=== PATIENT | male | born 1955 | race Caucasian/White ===

== ENCOUNTER 2018-07-31 02:36 | Outpatient (CLI) | payer OTHER, SELFPAY ==
[2018-07-31 07:33] LABS: Abs Immature Grans 0.01 k/cumm (0.0-0.09); Absolute Basophil Count 0.04 k/cumm (0.0-0.2); Absolute Eosinophil Count 0.19 k/cumm (0.0-0.7); Absolute Lymphocyte Count 1.65 k/cumm (1.2-3.4); Absolute Monocyte Count 0.61 k/cumm (0.11-0.7); Absolute Neutrophil Count 3.83 k/cumm (1.2-6.7); Basophils % 0.6; HCT 47.3 % (40.0-50.0); HGB 15.6 g/dL (13.5-17.5); Immature Grans % 0.2; Lymphocytes % 26.1; Mean Corpuscular Hemoglobin 29.8 pg (27.0-33.0); Mean Corpuscular Volume 90.3 fL (80-95); Mean Platelet Volume 9.5 fL (8.0-11.0); Monocytes % 9.6; Neutrophils % 60.5; Platelet Count 228 x1000/uL (130-400); RBC 5.24 m/cumm (4.50-6.00); RBC Distribution Width 13.2 % (11.8-14.1); White Blood Cell Count 6.33 k/cumm (4.4-10.8)
[2018-07-31 07:46] LABS: ALT 58 U/L (12-78); AST 23 U/L (15-37); Albumin 3.6 g/dL (3.4-5.0); Alkaline Phosphatase 84 U/L (46-116); Anion Gap 7.7 mmol/L (3-11); BUN 23 mg/dL (7-18); Bilirubin, Total 0.4 mg/dL (0.2-1.0); CO2 26.3 mmol/L (21.0-32.0); CREATININE 1.01 mg/dL (0.70-1.30); Calcium 8.2 mg/dL (8.5-10.1); Chloride 107 mmol/L (98-107); Glucose 103 mg/dL (70-100); Sodium 141 mmol/L (136-145); Total Protein 7.3 g/dL (6.4-8.2)
[2018-07-31 07:54] LABS: Hemoglobin A1C 6.1 % (4.5-6.2)
[2018-07-31 20:40] LABS: Cholesterol 178 mg/dL (50-200); HDL Cholesterol 31 mg/dL (40-60); LDL CHOLESTEROL 136 mg/dL (<100); Triglyceride 115 mg/dL (30-150)
[2018-08-01 09:22] LABS: PSA, Diagnostic <0.1 ng/ml (0-4.5)
[2018-08-02 08:45] LABS: Testosterone, Total 479 ng/dL (240-950)
== END 2018-07-31 02:56 ==
PROVIDERS: PCP Family Medicine; Visit Provider Nurse Practitioner
DX: C61 Malignant neoplasm of prostate (principal); Z13.220 Encounter for screening for lipoid disorders; Z13.1 Encounter for screening for diabetes mellitus
CPT/HCPCS: 36415; 80053; 80061; 83721; 84403; 83036; 84153; 85025

== ENCOUNTER 2018-08-01 01:16 | Outpatient (CLI) | payer OTHER, SELFPAY ==
--- NOTE | 2018-08-01 14:34 | DI.US_ITS ---
SYMPTOM/DIAGNOSIS: RT CAROTID BRUIT, R09.89 CAROTID ULTRASOUND: A moderate quantity of high density plaque is noted in the distal common carotid and carotid bulb and take off of the internal carotid artery bilaterally. There is moderate narrowing of the left internal carotid artery. Bilateral antegrade flow is noted in the vertebrals. SUMMARY: Bilateral plaque formation is noted in the distal common carotid arteries and bulb and takeoff of the internal carotid artery. There is mild to moderate left internal carotid artery stenosis.
== END 2018-08-01 01:36 ==
PROVIDERS: PCP Family Medicine; Visit Provider Family Medicine
DX: R09.89 Other specified symptoms and signs involving the circulatory and respiratory systems (principal); I65.22 Occlusion and stenosis of left carotid artery
CPT/HCPCS: 93880

== ENCOUNTER 2018-09-12 10:13 | Emergency (ER) | payer OTHER, SELFPAY ==
[2018-09-12 10:18] VITALS: BP 178/88; PULSE 78; RESP 18; TEMP 36.7; O2SAT 99
--- NOTE | 2018-09-12 10:33 | ED.GENADUL_ITS ---
Discharge Plan Disposition Patient Disposition: HOME Condition: Stable Discharge Details Chief Complaint: Abd Prob Clinical Impression: Acute pyelonephritis, Acute flank pain, Lung nodule Primary Care Provider: Devin Cates ED Provider: Evens Guy Home Meds and New Rx's Prescriptions: New levofloxacin 750 mg tablet 750 mg PO DAILY Qty: 6 RF: 0 Continue carboxymethylcellulose sodium [Refresh Contacts] drops 2 drp OP BID RF: 0 atorvastatin 20 mg tablet 20 mg PO DAILY Qty: 90 RF: 3 methylcellulose (laxative) [Fiber Laxative (methylcellulo)] 500 MG tablet 500 mg PO DAILY RF: 0 Oxygen EACH RF: 0 atorvastatin [Lipitor] 40 MG tablet 40 mg PO DAILY Qty: 90 RF: 3 lisinopril 5 MG tablet 5 mg PO DAILY 30 Days Qty: 90 RF: 3 calcium carb and citrate-vitD3 1 EACH tablet extended release 1 tab PO DAILY RF: 0 diclofenac sodium 50 MG tablet,delayed release (DR/EC) 50 mg PO DAILY AM RF: 0 omega 7-aqz-fzj-fish oil [Fish Oil] 1 EACH capsule,delayed release(DR/EC) 1 cap PO DAILY AM RF: 0 aspirin 81 mg Tablet,Chewable 81 mg PO DAILY RF: 0 Discharge Instructions Instructions: Urinary Tract Infection in Men (ED) Additional Instructions: Follow up with your primary care provider within a week. You should also discuss with them the lung nodule seen on the cat scan and have repeat imaging in the future to make sure this isn't getting bigger if you have worsening pain, persistent vomit, or difficulty breathing return to the emergency department Medical Decision Making Patient comes in with complaints of left sided abdomen/oblique pain since this mroning and has some pain with deep breathing. Has no guarding or rebound but is tender in llq and oblique and left lower rib in mid axillary line. will obtain imaging to eval for diverticulitis vs pe though could be oblique strain. HAs no chest pressure or pain with walking and only with deep breathing so doubt acs and no tearing back pain and normal vascular exam so doubt dissection pt remains stable, still has some mild discomfort but declining pain meds at this time, lab work unremarkable except ua showing blood and positive nitrites and he does now note some burning with urination. awaiting imaging CTA of the chest shows no PE, does have small lower lobe infiltrates per Dr. Sean and 5mm nodule which pt was advised of and will need f/u with pcp for this. ct abd shows no acute pathology other than bladder wall inflammation. Will tx for possible early pna (though he states he has no increased cough from baseline or sob) and pyelo and advised f/u with pcp and return precautions Differential Diagnosis oblique strain, PE, diverticulitis Imaging Data Radiologic Study: Attestation: I personally reviewed and interpreted this imaging study as follows: Imaging: CT Scan Radiologist's impression: per dr. mcguire bilateral small lower lobe infiltrates, 5mm lung nodule, bladder inflammation Lab Data Lab results reviewed: Yes I reviewed the patient's lab results. HPI General Mode of arrival: ambulatory . Date/Time Provider Initiated Documentation: 09/12/18 10:24 . Limitations to Documentation: no limitations . Information obtained by: patient . History of Present Illness 63 year old M presents to the emergency department with the chief complaint of left sided abdominal pain, described as moderate, with intensity rated at 5. Quality is described as stabbing, and is localized to the chest and abdomen. Patient reports no radiation. Patient started experiencing this hour(s) (3) Patient notes no other symptoms.. Patient did receive the following treatments prior to arrival, none Related Data Home Medications Medication Instructions Recorded Confirmed calcium carb and citrate-vitD3 1 tab PO DAILY 03/20/14 09/12/18 methylcellulose (laxative) [Fiber 500 mg PO DAILY 06/30/16 09/12/18 Laxative (methylcellulo)] Oxygen 06/19/17 08/08/18 diclofenac sodium 50 mg PO DAILY AM 01/10/18 09/12/18 omega 5-qon-pvy-fish oil [Fish Oil] 1 cap PO DAILY AM 01/10/18 09/12/18 atorvastatin [Lipitor] 40 mg PO DAILY #90 tab-cap 01/30/18 09/12/18 lisinopril 5 mg PO DAILY 30 Days #90 tab 06/05/18 09/12/18 atorvastatin 20 mg tablet 20 mg PO DAILY #90 tab 08/08/18 09/12/18 carboxymethylcellulose sodium eye 2 drp OP BID ml 08/08/18 09/12/18 drops aspirin 81 mg PO DAILY 09/12/18 09/12/18 levofloxacin 750 mg PO DAILY #6 tab 09/12/18 Previous Rx's Medication Instructions Recorded atorvastatin [Lipitor] 40 mg PO DAILY #90 tab-cap 01/30/18 lisinopril 5 mg PO DAILY 30 Days #90 tab 06/05/18 atorvastatin 20 mg tablet 20 mg PO DAILY #90 tab 08/08/18 levofloxacin 750 mg PO DAILY #6 tab 09/12/18 Allergies Allergy/AdvReac Type Severity Reaction Status Date / Time gluten Allergy Unknown Unverified 09/12/18 10:21 ciprofloxacin HCl AdvReac Intermediate Nausea Unverified 09/12/18 10:21 [From Cipro] esomeprazole magnesium AdvReac Intermediate Diarrhea Unverified 09/12/18 10:21 [From Nexium] General Stated Complaint: Abd Prob GEORGETTE: 3 Review of Systems Review of Systems All systems reviewed & are unremarkable except as noted in HPI and below Constitutional Denies chills, Denies fever(s) and Denies weakness Eyes Denies loss of vision ENT Denies change in voice Cardiovascular Denies dyspnea Respiratory Denies dyspnea Gastrointestinal Denies nausea and Denies vomiting Genitourinary Denies dysuria Musculoskeletal Denies joint swelling Integumentary/Breasts Denies rash Neurologic Denies loss of vision and Denies weakness Psychiatric Denies depression Endocrine Denies cold intolerance and Denies heat intolerance Allergic/Immunologic Denies urticaria PFSH Family History Mother No problems noted. Father Diabetes Heart disease Sister Diabetes Heart disease Brother Cerebrovascular accident Brother Neoplasm Social History household members: other details: 2 Smoking/Tobacco Use Status: Current every day alcohol intake: current alcohol intake frequency: holidays/special occasions only substance use type: does not use special alfred needs: No Surgical History Excision, Tumor PROSTATE (11/04/13) Exam Const General: no acute distress Orientation: alert HENMT Head: normal to inspection Ears: external ears normal General nose exam: external nose normal Mouth: moist mucous membranes Eyes General: appearance normal, both eyes and all related structures Neck Neck: normal visual inspection Resp Effort & Inspection: normal respiratory effort and able to speak in complete sentences Cardio Rate: regular rate Skin General skin exam: no rashes or lesions noted Neuro General: alert and oriented x3 Extrem General: normal to inspection Psych Mental Status: mental status grossly normal Course Vital Signs Temperature 36.7 C 09/12/18 10:18 Pulse 78 09/12/18 10:18 Respiratory Rate 18 09/12/18 10:18 Blood Pressure 178/88 H 09/12/18 10:18 Pulse Oximetry 99 09/12/18 10:18 Temperature 36.7 C 09/12/18 10:18 Temperature Source Skin 09/12/18 10:18 Pulse 78 09/12/18 10:18 Respiratory Rate 18 09/12/18 10:18 Blood Pressure 178/88 H 09/12/18 10:18 Blood Pressure Position Sitting 09/12/18 10:18 Pulse Oximetry 99 09/12/18 10:18 Oxygen Delivery Method Room Air 09/12/18 10:18 Oxygen Flow Rate 0 09/12/18 10:18 Pain Level 9 09/12/18 10:18
[2018-09-12 10:58] LABS: Abs Immature Grans 0.03 k/cumm (0.0-0.09); Absolute Basophil Count 0.02 k/cumm (0.0-0.2); Absolute Eosinophil Count 0.12 k/cumm (0.0-0.7); Absolute Lymphocyte Count 1.24 k/cumm (1.2-3.4); Absolute Monocyte Count 0.81 k/cumm (0.11-0.7); Absolute Neutrophil Count 9.93 k/cumm (1.2-6.7); Basophils % 0.2; HCT 47.3 % (40.0-50.0); Immature Grans % 0.2; Lymphocytes % 10.2; Mean Corp. HGB Concentration 33.8 g/dL (32.0-36.0); Mean Corpuscular Hemoglobin 30.6 pg (27.0-33.0); Mean Corpuscular Volume 90.4 fL (80-95); Mean Platelet Volume 9.6 fL (8.0-11.0); Monocytes % 6.7; Neutrophils % 81.7; Platelet Count 219 x1000/uL (130-400); RBC 5.23 m/cumm (4.50-6.00); White Blood Cell Count 12.16 k/cumm (4.4-10.8)
[2018-09-12 11:05] LABS: Bilirubin Negative (Negative); Blood Large (Negative); Clarity Cloudy; Glucose Negative (Negative); Ketones Negative (Negative); Leukocyte Esterase Small (Negative); Nitrite Positive (Negative); Urobilinogen 0.2 EU/dL (Up TO 0.2); pH 7.5 (5-8)
[2018-09-12 11:11] LABS: PTT Activated 24.3 sec (21.0-31.4); Prothrombin Time 9.7 sec (9.3-10.8)
[2018-09-12 11:13] LABS: ALT 58 U/L (12-78); AST 23 U/L (15-37); Albumin 3.6 g/dL (3.4-5.0); Alkaline Phosphatase 89 U/L (46-116); Anion Gap 7.5 mmol/L (3-11); BUN 20 mg/dL (7-18); Bilirubin, Direct 0.12 mg/dL (0.00-0.20); Bilirubin, Total 0.4 mg/dL (0.2-1.0); CO2 28.5 mmol/L (21.0-32.0); CREATININE 0.96 mg/dL (0.70-1.30); Chloride 103 mmol/L (98-107); Glucose 115 mg/dL (70-100); Sodium 139 mmol/L (136-145); Total Protein 7.4 g/dL (6.4-8.2)
[2018-09-12 11:16] LABS: Lipase 167 U/L (73-393)
[2018-09-12 11:16] LABS: C & S Indicated? Yes; RBC >50 (0-2)
[2018-09-12 11:18] LABS: Troponin I < 0.02 ng/mL (0.00-0.06)
--- NOTE | 2018-09-12 11:48 | DI.CT_ITS ---
SYMPTOM/DIAGNOSIS: LT SIDED ABD AND LOW CHEST PAIN PE CHEST CT: CT angiography was performed with multi slice acquisition and multi planar and 3D reconstruction. The study was carried out according to the usual protocol with an intravenous administration of 100 cc's of Omnipaque 350. There is no evidence of PE. There are bilateral upper lobe regions of infiltration. Note is also made of a 5 mm. right upper lobe nodule. There is no evidence of hilar or mediastinal adenopathy. The heart is within normal limits in size. There are atherosclerotic changes involving the aorta without evidence of an aneurysm. Note is made of degenerative bony changes. There is a 5 mm. right upper lobe nodule. In a high risk patient, further evaluation with a follow up chest CT in 6 months is recommended. ABDOMEN AND PELVIC CT: The liver is unremarkable. There is no evidence of cholelithiasis or acute cholecystitis or biliary obstruction. The pancreas, spleen, kidneys and adrenals are intact. There is no evidence of bowel obstruction. There is nothing to suggest an acute appendix. There are a number of minimally dilated small bowel loops. There is no evidence of diverticulosis or diverticulitis. There is no evidence of free air or free fluid in the abdomen or pelvis. There is suboptimal distension of the bladder and diffuse bladder wall thickening is identified. Note is made of small bilateral fat containing inguinal hernias. There is no evidence of adenopathy in the abdomen or pelvis. There are atherosclerotic changes involving the aorta without evidence of an aneurysm. Degenerative changes involving the lower dorsal and lumbar spine are identified. No acute bony abnormality is evident. SUMMARY: Diffuse bladder wall thickening is identified and would certainly be consistent with cystitis.
[2018-09-12] MEDS: Omnipaque 350 MG/ML 100 ML BTL IJ (11:51)
[2018-09-12] MEDS: LEVOFLOXACIN 500 MG, LEVOFLOXACIN 250 MG 750 MG PO (12:27)
--- NOTE | 2018-09-12 12:49 | CMPROGNOTE_ITS ---
Care Management Progress Note 09/12-Dr. Guy requested assistance with a PCP (Sabrina) f/u in one week for kidney infection and lung nodule. Referral faxed to [facility].
== END 2018-09-12 12:32 | disposition home or self-care (01) ==
PROVIDERS: Emergency Provider Emergency Medicine; PCP Family Medicine
DX: N10 Acute pyelonephritis (principal); R10.9 Unspecified abdominal pain; R91.1 Solitary pulmonary nodule
CPT/HCPCS: 36415; 71275; 74177; 80053; 80076; 83690; 87077; 99285; 81003; 81015; 84484; 85025; 85610; 85730; 87086; 87186; 99284; J3490

== ENCOUNTER 2018-09-24 01:45 | Outpatient (CLI) | payer OTHER, SELFPAY ==
[2018-09-24 08:50] LABS: Bilirubin Negative (Negative); Blood Trace-intact (Negative); Clarity Clear; Glucose Negative (Negative); Ketones Negative (Negative); Leukocyte Esterase Negative (Negative); Nitrite Negative (Negative); Specific Gravity 1.015 (1.005-1.025); Urobilinogen 0.2 EU/dL (Up TO 0.2); pH 7.5 (5-8)
[2018-09-24 08:59] LABS: Bacteria Rare HPF (Negative); C & S Indicated? No; Casts Negative LPF (Negative); Crystals Negative HPF (Negative); Epithelial Cells Rare HPF (Negative); Mucus Moderate (Negative); WBC 0-2 HPF (0-5)
== END 2018-09-24 02:05 ==
PROVIDERS: PCP Family Medicine; Visit Provider Family Medicine
DX: N12 Tubulo-interstitial nephritis, not specified as acute or chronic (principal)
CPT/HCPCS: 81003; 81015

== ENCOUNTER 2019-02-05 01:52 | Outpatient (CLI) | payer MEDICARE, OTHER, SELFPAY ==
[2019-02-05 07:53] LABS: Abs Immature Grans 0.02 k/cumm (0.0-0.09); Absolute Basophil Count 0.06 k/cumm (0.0-0.2); Absolute Eosinophil Count 0.22 k/cumm (0.0-0.7); Absolute Monocyte Count 0.67 k/cumm (0.11-0.7); Absolute Neutrophil Count 4.66 k/cumm (1.2-6.7); Basophils % 0.8; Eosinophils % 2.9; HCT 48.3 % (40.0-50.0); HGB 16.2 g/dL (13.5-17.5); Immature Grans % 0.3; Lymphocytes % 26.2; Mean Corp. HGB Concentration 33.5 g/dL (32.0-36.0); Mean Corpuscular Hemoglobin 30.2 pg (27.0-33.0); Mean Corpuscular Volume 90.1 fL (80-95); Mean Platelet Volume 9.7 fL (8.0-11.0); Monocytes % 8.8; Platelet Count 234 x1000/uL (130-400); RBC 5.36 m/cumm (4.50-6.00); RBC Distribution Width 13.3 % (11.8-14.1); White Blood Cell Count 7.63 k/cumm (4.4-10.8)
[2019-02-05 08:46] LABS: ALT 48 U/L (12-78); AST 20 U/L (15-37); Albumin 3.7 g/dL (3.4-5.0); Alkaline Phosphatase 92 U/L (46-116); Anion Gap 7.8 mmol/L (3-11); BUN 23 mg/dL (7-18); Bilirubin, Total 0.4 mg/dL (0.2-1.0); CO2 29.2 mmol/L (21.0-32.0); CREATININE 1.01 mg/dL (0.70-1.30); Calcium 9.2 mg/dL (8.5-10.1); Chloride 104 mmol/L (98-107); Glucose 108 mg/dL (70-100); Potassium 4.8 mmol/L (3.5-5.1); Sodium 141 mmol/L (136-145); Total Protein 7.3 g/dL (6.4-8.2)
[2019-02-05 08:48] LABS: ALT 51 U/L (12-78); Cholesterol 108 mg/dL (50-200); HDL Cholesterol 29 mg/dL (40-60); LDL CHOLESTEROL 64 mg/dL (<100); Triglyceride 90 mg/dL (30-150)
[2019-02-06 10:12] LABS: PSA, Diagnostic <0.1 ng/ml (0-4.5)
[2019-02-09 13:34] LABS: Testosterone, Total 388 ng/dL (240-950)
== END 2019-02-05 02:12 ==
PROVIDERS: PCP Family Medicine; Visit Provider Nurse Practitioner Adult Health
DX: C61 Malignant neoplasm of prostate (principal); E78.5 Hyperlipidemia, unspecified
CPT/HCPCS: 36415; 80053; 80061; 83721; 84403; 84153; 84460; 85025

== ENCOUNTER 2019-02-14 00:42 | Outpatient (CLI) | payer MEDICARE, OTHER, SELFPAY ==
--- NOTE | 2019-02-14 12:35 | DI.CT_ITS ---
SYMPTOMS/DIAGNOSIS: SOLITARY PULMONARY NODULE, R91.[address]: A noncontrast enhanced examination was carried out. When compared with the prior study of 09/12/18, again noted is a 5 mm right upper lobe nodule. No other nodules are identified. There is no infiltrate or pleural effusion. The heart is not enlarged, coronary artery calcification is seen. There is, on this noncontrast enhanced study, no evidence of hilar or mediastinal adenopathy. There are atherosclerotic changes involving the aorta without evidence of an aneurysm. SUMMARY: Stable 5 mm nodule in the right upper lobe. Follow-up evaluation of this patient with a low dose screening chest CT in 12 months is suggested for further evaluation.
== END 2019-02-14 01:02 ==
PROVIDERS: PCP Family Medicine; Visit Provider Family Medicine
DX: R91.1 Solitary pulmonary nodule (principal)
CPT/HCPCS: 71250

== ENCOUNTER 2019-05-19 09:01 | Emergency (ER) | payer MEDICARE, OTHER, SELFPAY ==
[2019-05-19 09:09] VITALS: BP 167/75; PULSE 69; RESP 16; TEMP 37; O2SAT 97
--- NOTE | 2019-05-19 09:10 | W.ED.GENAD ---
Discharge Plan Disposition Patient Disposition: HOME Condition: Good Discharge Details Chief Complaint: RashLesion Clinical Impression: Skin lesion Primary Care Provider: Devin Cates ED Provider: Ashish Rowell Home Meds and New Rx's Prescriptions: New doxycycline hyclate 100 mg tablet 100 mg PO BID 10 Days Qty: 20 RF: 0 No Action Fiber Laxative (methylcellulo) 500 MG tablet 500 mg PO DAILY RF: 0 lisinopril 5 MG tablet 5 mg PO DAILY 30 Days Qty: 90 RF: 3 atorvastatin 20 mg tablet 20 mg PO DAILY Qty: 90 RF: 3 atorvastatin [Lipitor] 40 mg tablet 40 mg PO DAILY Qty: 90 RF: 3 calcium carb and citrate-vitD3 1 EACH tablet extended release 1 tab PO DAILY RF: 0 Fish Oil 1 EACH capsule,delayed release(DR/EC) 1 cap PO DAILY AM RF: 0 diclofenac sodium 50 mg tablet,delayed release (DR/EC) 50 mg PO BID RF: 0 aspirin 81 mg Tablet,Chewable 81 mg PO DAILY RF: 0 Discharge Instructions Instructions: Cellulitis (ED), Tick Bite (ED) Additional Instructions: Well currently there is no clear evidence of Lyme disease, I do feel that there is an infection secondary to the tick bite. Please take the antibiotic as directed. Please do not take it with your calcium, milk, or dairy. Please apply triple antibiotic ointment to the lesion 2-3 times per day. Please watch it closely. If you notice any spreading of the lesion, discharge, drainage, please return immediately for reassessment. If you notice any worsening of your symptoms, or any new symptoms such as vomiting, diarrhea, fever, chills, shortness of breath, chest pain, numbness, weakness, or fainting , please return immediately to the emergency department for reevaluation. Please follow up with your primary care provider as soon as possible for reassessment and reevaluation. As always, it was a pleasure participating in your medical care today. Referrals: Devin Cates [Primary Care Provider] - Medical Decision Making This is a pleasant 64-year-old male who who presents today for evaluation of lesion on his suprapubic skin. He was bitten by a tick there, and states that it had been bitten on for just a few minutes. It was not engorged. He is able to repeat off without any skin in the prone viscus. Since then he has noticed mild erythema around a violaceous center. No drainage or discharge. No clinical evidence of erythema migrans, no current clinical evidence of staph scalded skin syndrome, erythema multiforme, erythema migrans, toxic epidermal necrolysis, Levy-Shaquille syndrome, Kawasaki-like rash, meningococcemia, pemphigus vulgaris, or necrotizing fasciitis. No evidence of black eschar to suggest cutaneous anthrax, no exposure to she per [place] recently. Signs and symptoms consistent are consistent with a very mild cellulitis. However because of the tick component, and the uncertainty of the tick type, I do feel that antibiotics are both indicated and reasonable. He will be given a course of doxycycline, in conjunction with recommendations for trial topical triple antibiotic ointment 2-3 times a day. I have extensively reviewed the treatment plan and discharge instructions with the patient. I have addressed all patient concerns at this time. The patient was made aware of what symptoms to monitor for that would warrant a return to the emergency department. Discussed the plan with the patient, they demonstrate verbal understanding and agreement with our assessment and plan at this time. HPI General Date/Time Provider Initiated Documentation: 05/19/19 09:02. HPI Narrative: This is a 64-year-old male with a past medical history of high cholesterol, hypertension, previous prostate cancer, who presents today for evaluation of a tick bite. Patient states that yesterday he has a tick on him and bit him for roughly 1 to 2 minutes. It was not engorged. He was able to pluck it off without any attached skin. However since then he has noticed a small violaceous and red lesion where the tick had bitten. He denies any pain, fever, chills, joint pain, nausea, vomiting, or diarrhea. He denies any other associated complaints. He denies any discharge. He presents today out of concern for the lesion. He denies any other modifying factors. He denies any IV or illicit drug use, pertinent family history or recent surgical history. Related Data Home Medications Medication Instructions Recorded Confirmed calcium carb and citrate-vitD3 1 tab PO DAILY 03/20/14 04/30/19 Fiber Laxative (methylcellulo) 500 mg PO DAILY 06/30/16 04/30/19 Fish Oil 1 cap PO DAILY AM 01/10/18 04/30/19 lisinopril 5 mg PO DAILY 30 Days #90 tab 06/05/18 04/30/19 aspirin 81 mg PO DAILY 09/12/18 04/30/19 atorvastatin 20 mg tablet 20 mg PO DAILY #90 tab 10/22/18 04/30/19 atorvastatin 40 mg tablet 40 mg PO DAILY #90 tab-cap 10/22/18 04/30/19 diclofenac sodium 50 mg 50 mg PO BID tab 02/11/19 04/30/19 tablet,delayed release doxycycline hyclate 100 mg PO BID 10 Days #20 tab 05/19/19 Previous Rx's Medication Instructions Recorded lisinopril 5 mg PO DAILY 30 Days #90 tab 06/05/18 atorvastatin 20 mg tablet 20 mg PO DAILY #90 tab 10/22/18 atorvastatin 40 mg tablet 40 mg PO DAILY #90 tab-cap 10/22/18 doxycycline hyclate 100 mg PO BID 10 Days #20 tab 05/19/19 Allergies Allergy/AdvReac Type Severity Reaction Status Date / Time gluten Allergy Unknown Unverified 04/30/19 08:21 ciprofloxacin HCl AdvReac Intermediate Nausea Unverified 04/30/19 08:21 [From Cipro] esomeprazole magnesium AdvReac Intermediate Diarrhea Unverified 04/30/19 08:21 [From Nexium] General Stated Complaint: RashLesion GEORGETTE: 5 Review of Systems Review of Systems All systems reviewed & are unremarkable except as noted in HPI and below PFSH Social History Smoking/Tobacco Use Status: Current every day Alcohol Intake: current Alcohol Intake frequency: holidays/special occasions only Drug use: Never Substance use type: does not use Household members: other Details: 2 What type of physical activity do you participate in: none Special alfred needs: No Do you feel safe at home: Yes Do you feel safe in your relationship?: Yes Exam Narrative Exam Narrative: 1.Const: Well-nourished, Well-developed, appearing stated age 2.Eyes: PERRL, no conjunctival injection, and symmetrical lids. 3.ENT: Atraumatic external nose and ears. Moist MM. Neck: Symmetric, trachea midline, No thyromegaly. 4.CVS: +S1/S2, No murmurs or gallops. Peripheral pulses 2+ and equal in all extremities. Brisk capillary refill in all extremities. 5.RESP: Unlabored respiratory effort. Clear to auscultation bilaterally. No wheezes rales or rhonchi 6.GI: Soft, Nontender/Nondistended, No hepatosplenomegaly. No guarding or rebound. 7.MSK: Normocephalic/Atraumatic, Extremities w/o deformity or ttp No cyanosis or clubbing, Normal movement of all extremities 8.Skin: Warm, Dry. In the suprapubically region there is a small circular lesion roughly 1 cm in diameter, notable violaceous center with mild erythema surrounding it. No discharge, no retained foreign body, no evidence of black eschar. No evidence of erythema migrans. Negative Nikolsky sign. No large vesicles or bulla. No palpable purpura. No oral lesions. No mucosal lesions. No evidence of severe cellulitis. No evidence of vaccine preventable rash. 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 Sensation grossly intact, no focal neurologic deficits. 10.Psych: (AAO) x3. Appropriate mood and affect Course Vital Signs Temperature 37.0 C 05/19/19 09:09 Pulse 69 05/19/19 09:09 Respiratory Rate 16 05/19/19 09:09 Blood Pressure 167/75 H 05/19/19 09:09 Pulse Oximetry 97 05/19/19 09:09 Temperature 37.0 C 05/19/19 09:09 Temperature Source Temporal Artery Scan 05/19/19 09:09 Pulse 69 05/19/19 09:09 Respiratory Rate 16 05/19/19 09:09 Respiratory Effort Non-Labored 05/19/19 09:10 Blood Pressure 167/75 H 05/19/19 09:09 Blood Pressure Position Sitting 05/19/19 09:09 Pulse Oximetry 97 05/19/19 09:09 Oxygen Delivery Method Room Air 05/19/19 09:09 Oxygen Flow Rate 0 05/19/19 09:09 Pain Level 0 05/19/19 09:09
== END 2019-05-19 09:20 | disposition home or self-care (01) ==
LOC: ER 09:12
PROVIDERS: Emergency Provider Student in an Organized Health Care Education/Training Program; PCP Family Medicine
DX: S30.861A Insect bite (nonvenomous) of abdominal wall, initial encounter (principal); W57.XXXA Bitten or stung by nonvenomous insect and other nonvenomous arthropods, initial encounter; I10 Essential (primary) hypertension
CPT/HCPCS: 99283

== ENCOUNTER 2019-06-03 09:51 | Outpatient (CLI) | payer MEDICARE, OTHER, SELFPAY ==
[2019-06-03 11:00] LABS: Abs Immature Grans 0.02 k/cumm (0.0-0.09); Absolute Basophil Count 0.05 k/cumm (0.0-0.2); Absolute Eosinophil Count 0.16 k/cumm (0.0-0.7); Absolute Lymphocyte Count 2.11 k/cumm (1.2-3.4); Absolute Neutrophil Count 4.79 k/cumm (1.2-6.7); Basophils % 0.6; Eosinophils % 2.1; HCT 46.3 % (40.0-50.0); HGB 15.7 g/dL (13.5-17.5); Immature Grans % 0.3; Lymphocytes % 27.3; Mean Corp. HGB Concentration 33.9 g/dL (32.0-36.0); Mean Corpuscular Hemoglobin 30.1 pg (27.0-33.0); Mean Corpuscular Volume 88.7 fL (80-95); Mean Platelet Volume 9.9 fL (8.0-11.0); Monocytes % 7.8; Neutrophils % 61.9; Platelet Count 213 x1000/uL (130-400); RBC 5.22 m/cumm (4.50-6.00); RBC Distribution Width 12.9 % (11.8-14.1); White Blood Cell Count 7.73 k/cumm (4.4-10.8)
[2019-06-03 12:14] LABS: ALT 48 U/L (12-78); AST 25 U/L (15-37); Albumin 3.5 g/dL (3.4-5.0); Alkaline Phosphatase 83 U/L (46-116); Anion Gap 10.9 mmol/L (3-11); BUN 22 mg/dL (7-18); Bilirubin, Total 0.4 mg/dL (0.2-1.0); CO2 24.1 mmol/L (21.0-32.0); Calcium 8.9 mg/dL (8.5-10.1); Calculated LDL 56 mg/dL; Chloride 107 mmol/L (98-107); Cholesterol 104 mg/dL (50-200); Glucose 99 mg/dL (70-100); HDL Cholesterol 27 mg/dL (40-60); Iron 88 ug/dL (50-175); Potassium 4.3 mmol/L (3.5-5.1); Sodium 142 mmol/L (136-145); Total Iron Binding Capacity 272 ug/dL (250-450); Total Protein 6.9 g/dL (6.4-8.2); Transferrin Sat 32 % (20-55); Triglyceride 109 mg/dL (30-150)
[2019-06-03 12:38] LABS: Vitamin D 25 Total 31.9 ng/ml (30-100)
[2019-06-04 17:29] LABS: Tissue Transglutaminase Ab IgA 5.6 U/mL
== END 2019-06-03 10:11 ==
PROVIDERS: PCP Family Medicine; Visit Provider Internal Medicine Gastroenterology
DX: R73.01 Impaired fasting glucose (principal); E78.5 Hyperlipidemia, unspecified; K90.0 Celiac disease
CPT/HCPCS: 36415; 80053; 80061; 82306; 83721; 83036; 83516; 83540; 83550; 85025

== ENCOUNTER 2020-01-01 22:46 | Emergency (ER) | payer MEDICARE, OTHER, SELFPAY ==
[2020-01-01 22:50] VITALS: BP 142/63; PULSE 103; RESP 18; TEMP 37.5; O2SAT 94
--- NOTE | 2020-01-01 23:03 | ED.GENADUL_ITS ---
Discharge Plan Disposition Patient Disposition: HOME Condition: Improving Discharge Details Chief Complaint: Fever Clinical Impression: Pneumonia involving right lung Primary Care Provider: Devin Cates ED Provider: Kirill Casey Home Meds and New Rx's Prescriptions: New cefpodoxime 200 mg tablet 200 mg PO BID Qty: 19 RF: 0 Continued Fiber Laxative (methylcellulo) 500 MG tablet 500 mg PO DAILY RF: 0 lisinopril 5 mg tablet 5 mg PO DAILY 30 Days Qty: 90 RF: 3 atorvastatin 20 mg tablet 20 mg PO DAILY Qty: 90 RF: 3 atorvastatin [Lipitor] 40 mg tablet 40 mg PO DAILY Qty: 90 RF: 3 calcium carb and citrate-vitD3 1 EACH tablet extended release 1 tab PO DAILY RF: 0 Fish Oil 1 EACH capsule,delayed release(DR/EC) 1 cap PO DAILY AM RF: 0 diclofenac sodium 50 mg tablet,delayed release (DR/EC) 50 mg PO BID RF: 0 aspirin 81 mg Tablet,Chewable 81 mg PO DAILY RF: 0 Discharge Instructions Instructions: Pneumonia (ED) Additional Instructions: Small, frequent sips of fluids that you maintain hydration. May continue your diclofenac as previously scheduled. Take antibiotics as prescribed. Return to the ER for any acute concerns. Please follow-up with regular doctor if not improving in 5 to 7 days time. Medical Decision Making 64-year-old male presents with his complaining of 4 days of intermittent fever and chills with associated malaise, decreased p.o. intake, and a chronic cough. Denies travel or known sick contacts. He is slightly tachycardic with otherwise unremarkable vital signs. Differential diagnosis would include pneumonia, bronchitis, influenza. Patient had IV access established, given fluid bolus, referred for chest x-ray, flu swab, laboratory testing. Patient's x-ray reveals right base hazy opacities. His laboratories note a white blood cell count of 6, hematocrit 44, platelets 205. Chemistries reveal slightly elevated BUN but otherwise reassuring. Influenza screen negative. Patient improved following fluids and ketorolac. He is allergic to gluten- containing medications, given Cefpodoxime will prescribe him a course of the same. He understands homecare as well as return precautions. HPI General Mode of arrival: ambulatory . Date/Time Provider Initiated Documentation: 01/01/20 22:46 . Limitations to Documentation: no limitations . Information obtained by: patient . History of Present Illness 64 year old M presents to the emergency department with the chief complaint of 4 days of fever and chills, chronic cough, described as moderate, Quality is described as dull, Patient reports no radiation. Patient started experiencing this day(s) and it has been intermittent. No relieving factors improve symptom(s), No exacerbating factors reported . Patient notes fever/chills, headaches, loss of appetite and malaise. Patient did receive the following treatments prior to arrival, other (Tylenol this afternoon) Related Data Home Medications Medication Instructions Recorded Confirmed calcium carb and citrate-vitD3 1 tab PO DAILY 03/20/14 01/01/20 Fiber Laxative (methylcellulo) 500 mg PO DAILY 06/30/16 01/01/20 Fish Oil 1 cap PO DAILY AM 01/10/18 01/01/20 aspirin 81 mg PO DAILY 09/12/18 01/01/20 diclofenac sodium 50 mg 50 mg PO BID tab 02/11/19 01/01/20 tablet,delayed release lisinopril 5 mg tablet 5 mg PO DAILY 30 Days #90 tab 09/04/19 01/01/20 atorvastatin 20 mg tablet 20 mg PO DAILY #90 tab 11/04/19 01/01/20 atorvastatin 40 mg tablet 40 mg PO DAILY #90 tab-cap 11/04/19 01/01/20 cefpodoxime 200 mg PO BID #19 tab 01/01/20 Previous Rx's Medication Instructions Recorded lisinopril 5 mg tablet 5 mg PO DAILY 30 Days #90 tab 09/04/19 atorvastatin 20 mg tablet 20 mg PO DAILY #90 tab 11/04/19 atorvastatin 40 mg tablet 40 mg PO DAILY #90 tab-cap 11/04/19 cefpodoxime 200 mg PO BID #19 tab 01/01/20 Allergies Allergy/AdvReac Type Severity Reaction Status Date / Time gluten Allergy Unknown Unverified 01/01/20 22:55 ciprofloxacin HCl AdvReac Intermediate Nausea Unverified 01/01/20 22:55 [From Cipro] esomeprazole magnesium AdvReac Intermediate Diarrhea Unverified 01/01/20 22:55 [From Nexium] General Stated Complaint: Fever GEORGETTE: 3 Review of Systems Narrative: 6 systems reviewed and otherwise negative [facility] Family History (Updated 09/03/19 @ 09:52 by Stan Gomez) Mother , KIDNEY DISEASE at age 80. No problems noted. Father Diabetes Heart disease Sister Diabetes Heart disease Brother Stroke Brother Cancer Social History Smoking/Tobacco Use Status: Current every day Tobacco Type: cigarettes Tobacco: How many years used: 53 Quit status: not considering quitting Alcohol Intake: never Drug use: Never Substance use type: does not use Caregiver/Support person: Yes Household members: spouse Housing: house Communication Needs: Hard of Hearing Do you need help understanding health information?: Never Pets and animals: Yes Pets and animals: cat(s) Sexually active: No Do you think of yourself as: straight/heterosexual Current gender identity: male What is your relationship status?: How often do you talk on the phone with friends or family?: three or more times per week How often do you get together with friends or relatives?: once per week How often do you attend episcopalian or adventist services?: decline to answer Do you belong to any clubs or organized social groups?: no Panel score (0-1 are the most socially isolated patients): 2 What type of physical activity do you participate in: walking Duration: decline to answer Frequency: daily Colleen/Tenriism: No preference Special colleen needs: No Seatbelt use: always Drive intox or ride w/intox passenger coach driver: No Do you feel safe at home: Yes Do you feel safe in your relationship?: Yes Exam Narrative Exam Narrative: GEN: awake, alert, oriented 3. Pleasant, well groomed, interactive. HEAD: Normocephalic, atraumatic ENT: Mucous membranes moist, oropharynx unremarkable, External ear exam unremarkable EYES: PERRL, EOMI NECK: Full ROM, no DARION, no menigismus CHEST/RESP: Nontender, clear to auscultation bilateral, no wheeze/rhonchi/rales CARDIOVASCULAR: RRR, no murmur, rub bindu. 2+ Rad pulse bilateral ABDOMEN: Soft, nontender, no mass. +Bowel sounds EXT: Full ROM, no edema, no rash Neuro: Grossly normal neurologic exam, conversant, interactive. Psych: Speech fluent, thoughts congruent, affect normal Course Vital Signs Vital signs: Vital Signs Temperature 37.5 C 01/01/20 22:50 Pulse 103 H 01/01/20 22:50 Respiratory Rate 18 01/01/20 22:50 Blood Pressure 142/63 H 01/01/20 22:50 Pulse Oximetry 94 L 01/01/20 22:50 Temperature 37.5 C 01/01/20 22:50 Temperature Source Temporal Artery Scan 01/01/20 22:50 Pulse 103 H 01/01/20 22:50 Respiratory Rate 18 01/01/20 22:50 Respiratory Effort 01/01/20 22:57 Blood Pressure 142/63 H 01/01/20 22:50 Pulse Oximetry 94 L 01/01/20 22:50 Oxygen Delivery Method Room Air 01/01/20 22:50 Oxygen Flow Rate 0 01/01/20 22:50 Lab/Test Results Lab/Test Results: 01/01/20 22:55 Nasopharynx Influenza Types A,B Antigen - Pending
[2020-01-01] MEDS: Normal Saline 1,000 ML 1000 ML IV (23:08)
[2020-01-01] MEDS: Ketorolac 30 MG/ML VIAL IVP (23:08)
[2020-01-01 23:17] LABS: Abs Immature Grans 0.01 k/cumm (0.0-0.09); Absolute Basophil Count 0.02 k/cumm (0.0-0.2); Absolute Lymphocyte Count 0.94 k/cumm (1.2-3.4); Absolute Monocyte Count 0.87 k/cumm (0.11-0.7); Absolute Neutrophil Count 5.04 k/cumm (1.2-6.7); Basophils % 0.3; Eosinophils % 1.4; HCT 44.9 % (40.0-50.0); HGB 15.4 g/dL (13.5-17.5); Immature Grans % 0.1 %; Lymphocytes % 13.5; Mean Corp. HGB Concentration 34.3 g/dL (32.0-36.0); Mean Corpuscular Hemoglobin 30.7 pg (27.0-33.0); Mean Corpuscular Volume 89.4 fL (80-95); Mean Platelet Volume 9.4 fL (8.0-11.0); Monocytes % 12.5; Neutrophils % 72.2; Platelet Count 205 x1000/uL (130-400); RBC 5.02 m/cumm (4.50-6.00); White Blood Cell Count 6.98 k/cumm (4.4-10.8)
--- NOTE | 2020-01-01 23:25 | DI.RAD_ITS ---
EXAM: XR CHEST 2V PA LATERAL CLINICAL HISTORY: Fever with chronic cough TECHNIQUE: 2D digital imaging was performed. COMPARISON: No exams were available for comparison FINDINGS: The cardiac and mediastinal contours have a normal appearance. The lungs are well inflated and clear . No infiltrate, effusion or pneumothorax is seen. No spine or rib fracture is identified. IMPRESSION: Negative chest x-ray.
[2020-01-01 23:30] LABS: ALT 44 U/L (16-63); AST 22 U/L (15-37); Albumin 3.4 g/dL (3.4-5.0); Alkaline Phosphatase 80 U/L (46-116); Anion Gap 8.8 mmol/L (3-11); BUN 26 mg/dL (7-18); Bilirubin, Total 0.3 mg/dL (0.2-1.0); CO2 26.2 mmol/L (21.0-32.0); CREATININE 1.12 mg/dL (0.70-1.30); Calcium 8.3 mg/dL (8.5-10.1); Chloride 104 mmol/L (98-107); Glucose 108 mg/dL (74-106); Potassium 4.1 mmol/L (3.5-5.1); Sodium 139 mmol/L (136-145); Total Protein 7.2 g/dL (6.4-8.2)
--- NOTE | 2020-01-01 23:32 | DI.VRAD_ITS ---
PROCEDURE INFORMATION: Exam: XR Chest, 2 Views Exam date and time: 01/01/2020 11:19 PM Age: 64 years old Clinical indication: Cough and fever TECHNIQUE: Imaging protocol: XR of the chest Views: 2 views. COMPARISON: CR CHEST 2 VIEWS PA,LAT 05/02/2017 9:02 AM FINDINGS: Lungs: Small right basilar hazy opacities. Pleural space: Unremarkable. No pleural effusion. No pneumothorax. Heart/Mediastinum: Unremarkable. No cardiomegaly. Bones/joints: Unremarkable. IMPRESSION: Small right basilar hazy opacities consistent with atelectasis, aspiration, or infection. Dictated and Authenticated by: Chidi Pan MD. Ordering:PROSPER Roy MD
[2020-01-02] MEDS: Cefpodoxime 200 MG TAB PO (00:05)
[2020-01-02 00:06] VITALS: BP 142/63; PULSE 103; RESP 18; TEMP 37.4; O2SAT 94
== END 2020-01-02 00:08 | disposition home or self-care (01) ==
PROVIDERS: Emergency Provider Emergency Medicine; PCP Family Medicine
DX: R53.81 Other malaise (principal); R50.9 Fever, unspecified; J18.9 Pneumonia, unspecified organism; F17.210 Nicotine dependence, cigarettes, uncomplicated
CPT/HCPCS: 36415; 80053; 87449; 96361; 96374; 99284; 71046; 85025; J1885

== ENCOUNTER 2020-08-28 03:01 | Outpatient (CLI) | payer MEDICARE, OTHER, SELFPAY ==
[2020-08-28 08:04] LABS: Abs Immature Grans 0.04 10^3/uL (0.0-0.06); Absolute Basophil Count 0.07 10^3/uL (0.0-0.2); Absolute Lymphocyte Count 1.99 10^3/uL (1.2-3.4); Absolute Monocyte Count 0.79 10^3/uL (0.1-0.8); Absolute Neutrophil Count 5.99 10^3/uL (1.2-6.7); Basophils % 0.8; Eosinophils % 3.3; HCT 48.2 % (40.0-50.0); HGB 15.9 g/dL (13.5-17.5); Immature Grans % 0.4; Lymphocytes % 21.7; MCH 30.3 pg (27.0-33.0); MPV 9.5 fL (8.0-11.0); Monocytes % 8.6; Neutrophils % 65.2; Nucleated RBC 0 %; Platelet Count 258 10^3/uL (130-400); RBC 5.24 10^6/uL (4.36-5.78); RDW 12.6 % (11.8-14.1); RDW-SD 42.5 fL; WBC 9.18 10^3/uL (4.4-10.8)
[2020-08-28 08:57] LABS: Hemoglobin A1C 5.9 % (<5.7)
[2020-08-28 09:03] LABS: ALT 46 U/L (16-63); AST 19 U/L (15-37); Albumin 3.8 g/dL (3.4-5.0); Alkaline Phosphatase 94 U/L (46-116); Anion Gap 8.1 mmol/L (3-11); BUN 23 mg/dL (7-18); Bilirubin, Total 0.5 mg/dL (0.2-1.0); CO2 28.9 mmol/L (21.0-32.0); CREATININE 0.94 mg/dL (0.70-1.30); Calcium 8.8 mg/dL (8.5-10.1); Calculated LDL 67 mg/dL (<100); Chloride 105 mmol/L (98-107); Cholesterol 120 mg/dL (<200); Glucose 86 mg/dL (74-106); HDL Cholesterol 27 mg/dL (40-60); Potassium 4.4 mmol/L (3.5-5.1); Sodium 142 mmol/L (136-145); Total Protein 7.2 g/dL (6.4-8.2); Triglyceride 133 mg/dL (<150)
== END 2020-08-28 03:21 ==
PROVIDERS: PCP Family Medicine; Visit Provider Family Medicine
DX: E78.5 Hyperlipidemia, unspecified (principal); R73.01 Impaired fasting glucose
CPT/HCPCS: 36415; 80053; 80061; 83036; 85025

== ENCOUNTER 2020-09-25 03:39 | Outpatient (CLI) | payer MEDICARE, OTHER, SELFPAY ==
--- NOTE | 2020-09-25 06:30 | DI.US_ITS ---
EXAM: US CAROTID CLINICAL HISTORY: new bruit and f/u left carotid stenosis,r09.89. TECHNIQUE: Ultrasound carotids performed using grayscale, color-flow, and spectral Doppler imaging. COMPARISON: US US carotid from 08/01/2018 FINDINGS: RIGHT CAROTID ARTERY: Plaque: Moderate calcific plaque at the origins of the internal and external carotid arteries and the carotid bulb. Velocity elevation: Within the right ICA. LEFT CAROTID ARTERY: Plaque: [id number] plaque seen in the carotid bulbs and the proximal internal and external vergara tid arteries. Velocity elevation: Within the left ICA. VERTEBRAL ARTERIES: Antegrade flow. Measurements: R Bulb: 118 cm/second PS / 18.57cm/s ED R CCA: 66.2cm/s PS / 12.2cm/s ED R ECA: 156 cm/second PS/23 cm/second ED R ICA Prox: 155 cm/second PS/28 cm/second ED R ICA Mid: 109 cm/second PS / 21.4cm/s ED R ICA Distal: 112.2cm/s PS /27.8cm/s ED R Vert: 76.6cm/s PS / 19.5cm/s ED R SVR: 2.34 R DVR: 2.25 L Bulb: 91.1cm/s PS /26cm/s ED L CCA: 65.8cm/s PS / 10.8cm/s ED L ECA: 161 cm/second PS/39 cm/second ED L ICA Prox:200 cm/second PS/41 cm/second ED L ICA Mid: 136.7cm/sPS / 36.8cm/s ED L ICA Distal: 154.6cm/s PS / 36.8cm/s ED L Vert: 39.3cm/s PS / 11.2cm/s ED L SVR: 3.03 L DVR: 3.75 IMPRESSION: 1. Findings consistent with 50-69 percent bilateral internal carotid artery stenosis. 2. Bilateral atherosclerosis, right greater than left. Criteria for Carotid Stenosis: Normal: ICA PSV <125 cm/s no plaque or intimal thickening is visible. <50% stenosis: ICA PSV <125 cm/s and plaque or intimal thickening is visible. 50-69% stenosis: ICA PSV is 125-250 cm/s and plaque is visible. >70% stenosis to near occlusion: ICA PSV >250 cm/s with visible plaque and luminal narrowing. DATA REPOSITORY:
== END 2020-09-25 03:59 ==
PROVIDERS: PCP Family Medicine; Visit Provider Family Medicine
DX: I65.23 Occlusion and stenosis of bilateral carotid arteries (principal)
CPT/HCPCS: 93880

== ENCOUNTER 2022-05-02 03:01 | Outpatient (CLI) | payer MEDICARE, OTHER, SELFPAY ==
[2022-05-02] MEDS: Albuterol HFA 18 GM 200 PUFF INH IH (09:10)
[2022-05-02] MEDS: Inhaler, Assist Device 1 EACH MC (09:10)
--- NOTE | 2022-05-02 16:09 | W.PFT ---
Date of service: 05/02/22 Time of Service: 08:04 Pulmonary Function Test Result Requesting Provider Jane Wong Indications: Hypoxemia Interpretation Spirometry: There is mild airflow limitation. There is no significant bronchodilator response. Lung Volumes: There is evidence of airtrapping. Diffusion Capacity: The diffusion is reduced Airway Pressure: Airways resistance is normal. Impression Mild airflow obstruction with air trapping and a reduced diffusion. In the correct clinic context this could be consistent with COPD with emphysema. Clinical Correlation therefore is recommended.
== END 2022-05-02 03:02 | disposition home or self-care (01) ==
LOC: RT 03:01
PROVIDERS: PCP Family Medicine; Visit Provider Internal Medicine
DX: R09.02 Hypoxemia (principal); R94.2 Abnormal results of pulmonary function studies; R06.09 Other forms of dyspnea; R05.8 Other specified cough; K90.0 Celiac disease; F17.210 Nicotine dependence, cigarettes, uncomplicated
CPT/HCPCS: 94060; 94726; 94729

== ENCOUNTER 2023-04-14 08:04 | Emergency (ER) | payer OTHER, SELFPAY ==
[2023-04-14 08:09] VITALS: BP 119/63; PULSE 72; RESP 20; TEMP 37.3; O2SAT 97
--- NOTE | 2023-04-14 08:30 | DI.CT_ITS ---
Exam(s) CT ABDOMEN PELVIS W EXAM: CT ABDOMEN PELVIS W CLINICAL HISTORY: Abdominal pain, constipation, Cancer HX. TECHNIQUE: Imaging Protocol: Axial computed tomography images with coronal and sagittal reformatted images were created and reviewed CONTRAST MATERIAL: Intravenous: Omnipaque 350 Contrast volume:100 ml Oral: Yes FINDINGS: ABDOMEN: Lung Bases: Fibrotic changes at the lung bases greater on the right. Liver: Normal density. No measurable mass. Gallbladder and biliary tract: No radiodense calculus or dilation. Pancreas: Normal density, no abnormal calcifications or inflammatory process. Spleen: Normal. Kidneys: Normal size, contour and axis. No radiodense stones or obstructive uropathy. No suspicious m asses seen. Adrenal glands: No masses seen. Abdominal Aorta: Abdominal portion non-dilated. Atherosclerotic changes. Soft tissues: Unremarkable. PELVIS: Bladder: Bladder is empty and unable to be evaluated. Bowel: Contrast is noted in the stomach and small bowel which are unremarkable. Increased stool seen to the level of the junction of the descending and sigmoid colon. Sigmoid and rectum are free of st ool. No obstruction. No bowel wall thickening. Appendix normal. Peritoneal cavity: No ascites, collection or mesenteric inflammatory response. Bones: On degenerative disc changes throughout. Reproductive organs: Status post prostatectomy. Lymph nodes: Unremarkable. Impression: Increased stool, consistent with constipation. No acute abnormality. RADIATION DOSE DELIVERED: 811.36mGy.cm Total DLP DATA REPOSITORY: All CT scans at this facility are submitted to the National Radiology Data Registry (NRDR) Dose Index Registry (DIR) with the [employer] (ACR). RADIATION OPTIMIZATION: All CT scans at this facility use at least one of these dose optimization te chniques: automated exposure control; mA and/or kV adjustment per patient size (includes targeted exa ms where dose is matched to clinical indication); or iterative reconstruction.
--- NOTE | 2023-04-14 08:30 | NUR.NOTE ---
Nursing Note: pt states no one is stickin' a catheter in me
--- NOTE | 2023-04-14 08:44 | ED.GENADUL_ITS ---
Discharge Plan Disposition Patient Disposition: Home Discharge Details Clinical Impression: Constipation, Barbara infection Primary Care Provider: Jane Wong ED Provider: Abhijit Ruiz Home Meds and New Rx's Prescriptions: New clotrimazole 1 % cream 1 applic topical BID 14 Days Qty: 15 1RF Continued Fiber Laxative (methylcellulo) 500 MG tablet 500 mg PO DAILY Patient Comments: 12-15-17 pt reports that he is holding this med for SX on 12-18-17. hb calcium carb and citrate-vitD3 600 mg calcium- 500 unit tablet extended release 1 tab PO BID Patient Comments: 12-15-17 pt reports that he is holding this med for SX on 12-18-17. hb diclofenac sodium 50 mg tablet,delayed release (DR/EC) 50 mg PO BID Patient Comments: 01-19-18 pt reports that he takes 50 mg BID. hb diltiazem HCl 240 mg capsule,extended release 24 hr 240 mg PO DAILY amlodipine 5 mg tablet 5 mg PO DAILY sertraline 25 mg Tablet 12.5 mg PO DAILY buprenorphine 10 mcg/hour Patch Weekly See Rx Instructions .ROUTE .COMPLEX Rx Instructions: 15 mcg/hr transdermally once weekly, change on Fridays atorvastatin [Lipitor] 40 mg tablet 60 mg PO DAILY lisinopril 10 mg tablet 40 mg PO DAILY aspirin 81 mg Tablet,Chewable 81 mg PO DAILY Discharge Instructions Instructions: Constipation (ED), Skin Yeast Infection (ED) Additional Instructions: For your constipation please continue to take your normally prescribed medication and you may use butr-spz-efktyva mag citrate or home enemas for further bowel movements. Feel free to return for any new or significant worsening of symptoms. Your penile irritation is secondary to the significant amount of moisture caused by your urinary incontinence. This has high likelihood to continue due to you refusing a catheter at this time. It will be very important to keep the area as dry as possible and apply cxrv-lbr-kjlrran clotrimazole cream twice daily and then also with every change of your brief please dry the tip of your penis and apply diaper barrier cream. If you have significant worsening of your penis irritation or have severe swelling please return immediately to the emergency department for reassessment otherwise follow-up with the OR. Referrals: [facility] [Outside] Discharge Data Discharge Date/Time-TO BE ENTERED AT DEPARTURE: 04/14/23 13:44 Medical Decision Making Patient presenting to the emergency department for chief complaint of abdominal pain secondary to constipation. Patient has a history of prostate cancer and bladder cancer and is on pain patch for chronic severe pain. He states his last bowel movement was 4 days ago but is also started having some discomfort at the end of his penis along with redness irritation and some white discharge. Jenna ent states that he has urinary incontinence after his surgeries. He does not use a catheter due to the level of pain. Patient denies fever, nausea vomiting, bloody stools. He has used multiple lgdt-wql-pcdioon laxatives and his normal fiber supplement that has not helped. Physical exam shows hypoactive bowel sounds and significant and severe tenderness and guarding to the suprapubic and lower quadrants bilateral. Patient is an uncircumcised male with significant erythema and exudates at the tip of the penis with urine present. This appears secondary to the constant contact with urine and skin breakdown along with possible secondary yeast infection. Given patient's severe abdominal pain we will plan on checking labs and CT imaging due to cancer history. We will attempt to perform cath urine to check for urinary infection. Pending results will give IV acetaminophen. Reviewed patient's labs and CBC is overall unremarkable, CMP shows slight increase of glucose of 110 and albumin of 3.2 otherwise unremarkable. Did attempt straight cath in and out urine sample but patient could not tolerate this and refused to allow myself and staff to continue to attempt. A urinalysis unable to be obtained. CT imaging reviewed and radiologist interpretation shows findings consistent with constipation and no other acute findings. Patient was given mag citrate and enemas which did help relieve some of his constipation and had significant bowel movement here. Patient refusing catheterization for penile skin breakdown secondary to constant urinary incontinence. Due to this we will place patient on barrier cream to see if this helps and put in a urgent referral to urology at the OR where he is typically seen. Patient encouraged to return if he changes his mind about catheterization otherwise he was encouraged to return for new or significant worsening of symptoms. After discussion of diagnosis and plan of care patient has no further needs, questions, or concerns and states clear understanding to return to the emergency department for any worsening symptoms. This documentation was generated using [employer] system, please disregard any oddities of phrase or misspellings. Imaging Data Radiologic Study: Imaging: CT Scan Radiologist's impression: Exam(s) CT ABDOMEN PELVIS W EXAM: CT ABDOMEN PELVIS W CLINICAL HISTORY: Abdominal pain, constipation, Cancer HX. TECHNIQUE: Imaging Protocol: Axial computed tomography images with coronal and sagittal reformatted images were created and reviewed CONTRAST MATERIAL: Intravenous: Omnipaque 350 Contrast volume:100 ml Oral: Yes COMPARISON: CT Vascular^PE_ABDOMEN_PELVIS (Adult) from 09/12/2018 FINDINGS: ABDOMEN: Lung Bases: Fibrotic changes at the lung bases greater on the right. Liver: Normal density. No measurable mass. Gallbladder and biliary tract: No radiodense calculus or dilation. Pancreas: Normal density, no abnormal calcifications or inflammatory process. Spleen: Normal. Kidneys: Normal size, contour and axis. No radiodense stones or obstructive uropathy. No suspicious masses seen. Adrenal glands: No masses seen. Abdominal Aorta: Abdominal portion non-dilated. Atherosclerotic changes. Soft tissues: Unremarkable. PELVIS: Bladder: Bladder is empty and unable to be evaluated. Bowel: Contrast is noted in the stomach and small bowel which are unremarkable. Increased stool seen to the level of the junction of the descending and sigmoid colon. Sigmoid and rectum are free of stool. No obstruction. No bowel wall thickening. Appendix normal. Peritoneal cavity: No ascites, collection or mesenteric inflammatory response. Bones: On degenerative disc changes throughout. Reproductive organs: Status post prostatectomy. Lymph nodes: Unremarkable. Impression: Increased stool, consistent with constipation. No acute abnormality. Lab Data Lab results reviewed: Yes I reviewed the patient's lab results. HPI General Mode of arrival: ambulatory . Date/Time Provider Initiated Documentation: 04/14/23 08:04 . Limitations to Documentation: no limitations . Information obtained by: patient and RN notes reviewed . History of Present Illness 68 year old M presents to the emergency department with the chief complaint of Abdominal pain, constipation, urinary issues, described as moderate and severe, with intensity rated at 10. Quality is described as con stant, and is localized to the abdomen. Patient reports no radiation. Patient started experiencing this day(s) (4) and it has been constant. No relieving factors improve symptom(s), No exacerbating factors reported . Patient did receive the following treatments prior to arrival, other (Cibg-eis-lopdveg laxatives) Related Data Home Medications Medication Instructions Recorded Confirmed methylcellulose (laxative) 500 mg 500 mg PO DAILY 06/30/16 04/14/23 tablet (Fiber Laxative (methylcellulose)) aspirin 81 mg chewable tablet 81 mg PO DAILY 09/12/18 04/14/23 diclofenac sodium 50 mg 50 mg PO BID 02/11/19 04/14/23 tablet,delayed release calcium carb,cit ER 600 mg-vit D3 1 tab PO BID 09/07/20 04/14/23 12.5 mcg (500 unit) tablet,ext.rel amlodipine 5 mg tablet 5 mg PO DAILY 04/14/23 04/14/23 atorvastatin 40 mg tablet (Lipitor) 60 mg PO DAILY 04/14/23 04/14/23 buprenorphine 10 mcg/hour weekly See Rx Instructions .Route .COMPLEX 04/14/23 04/14/23 transdermal patch clotrimazole 1 % topical cream 1 applic topical BID 2 weeks #15 04/14/23 grams diltiazem HCl 240 mg capsule,24 240 mg PO DAILY 04/14/23 04/14/23 hr,extended release lisinopril 10 mg tablet 40 mg PO DAILY 04/14/23 04/14/23 sertraline 25 mg tablet 12.5 mg PO DAILY 04/14/23 04/14/23 Previous Rx's Medication Instructions Recorded clotrimazole 1 % topical cream 1 applic topical BID 2 weeks #15 04/14/23 grams Allergies Allergy/AdvReac Type Severity Reaction Status Date / Time gluten Allergy Unknown Unverified 04/14/23 08:17 ciprofloxacin HCl AdvReac Intermediate Nausea Unverified 04/14/23 08:17 [From Cipro] esomeprazole magnesium AdvReac Intermediate Diarrhea Unverified 04/14/23 08:17 [From Nexium] General Stated Complaint: Male Reproductive Problem GEORGETTE: 3 Review of Systems Constitutional Constitutional: Denies chills, Denies fever(s) and Reports poor appetite Cardiovascular Cardiovascular: Denies chest pain and Denies dyspnea Respiratory Respiratory: Denies cough and Denies dyspnea Gastrointestinal Gastrointestinal: Reports as per HPI, Reports abdominal pain, Denies melena, Denies hematochezia, Denies change in bowel habits, Reports constipation, Denies diarrhea, Denies nausea, Denies vomiting and Denies hematemesis Genitourinary Genitourinary: Denies hematuria, Reports difficulty urinating, Reports genital pain, Reports penile discharge, Denies urinary hesitancy, Reports urinary incontinence and Denies urinary urgency Integumentary/Breasts Skin/Breast: Reports erythema and Denies rash [facility] All Active Problems (Updated 04/14/23 @ 13:32 by Abhijit Ruiz NP) Constipation (Acute) Barbara infection (Acute) Right carotid bruit (Acute) Carotid ultrasound with 50 to 69% stenosis bilaterally. Tinnitus of left ear (Acute) HTN (hypertension) (Chronic) Nicotine dependence (Acute 08/06/13) Impaired fasting glucose (Chronic) Lung nodule (Chronic) Smoker (Acute 10/02/14) Prostate cancer (Acute 10/02/14) s/p surgery and radiation Hyperlipidemia (Acute 07/20/17) Patient with negative Doppler carotid study or significant obstructive disease requiring surgical intervention. We will continue monitoring. We will increase his atorvastatin to 60 mg daily due to his low HDL and relatively high. He refuses to stop smoking. We will see him back in 3 months and lipid panel. HH (hiatus hernia) (Acute 08/29/16) Celiac disease (Acute 09/26/16) Medical History Family history of cardiac disorder (10/02/14) Family history of diabetes mellitus (10/02/14) Parotid neoplasm (12/15/17) Biopsy negative. Surgical History Excision, Tumor [facility]/18/17; PAROTID TUMOR OR GLAND, LATERAL LOBE Status post prostatectomy Family History Mother , KIDNEY DISEASE at age 80. No problems noted. Father Diabetes Heart disease Sister Diabetes Heart disease Brother Stroke Brother Cancer Social History Smoking/Tobacco Use Status: Current every day Tobacco Type: cigarettes Tobacco: How many years used: 53 Quit status: not considering quitting Smoking risk assessment performed?: Yes Alcohol Intake: never Drug use: Never Substance use type: does not use Caregiver/Support person: Yes Household members: spouse Housing: house Communication Needs: Hard of Hearing Do you need help understanding health information?: Never Pets and animals: Yes Pets and animals: cat(s) Sexually active: No Do you think of yourself as: straight/heterosexual Current gender identity: male What is your relationship status?: How often do you talk on the phone with friends or family?: three or more times per week How often do you get together with friends or relatives?: once per week How often do you attend shinto or scientologist services?: decline to answer Do you belong to any clubs or organized social groups?: no Panel score (0-1 are the most socially isolated patients): 2 What type of physical activity do you participate in: walking Duration: decline to answer Frequency: daily Colleen/Confucianism: No preference Special colleen needs: No Seatbelt use: always Drive intox or ride w/intox motor bus driver: No Do you feel safe at home: Yes Do you feel safe in your relationship?: Yes Additional Social history: cannot assess privately Exam Const General: cooperative Orientation: alert, awake and oriented x3 Resp Effort & Inspection: normal respiratory effort and able to speak in complete sentences Auscultation: diminished lung sounds and rhonchi left lower and right lower Cardio Rate: regular rate Rhythm: regular rhythm Heart Sounds: murmur GI Inspection: normal to inspection and distended Palpation: soft, no hepatosplenomegaly, not firm, guarding in the LLQ and in the RLQ, no masses, no pulsatile masses, not rigid, no splenomegaly and tender in the LLQ, in the RLQ and suprapubicly Auscultation: hypoactive bowel sounds Back/Spine/Pelvis Back: no CVA tenderness Neuro General: patient alert, patient awake, patient oriented x3, gait normal and moves all extremities Course Vital Signs Vital signs: Vital Signs Temperature 37.3 C 04/14/23 08:09 Pulse 72 04/14/23 08:09 Respiratory Rate 20 04/14/23 08:09 Blood Pressure 119/63 04/14/23 08:09 Pulse Oximetry 97 04/14/23 08:09 Temperature 37.3 C 04/14/23 08:09 Temperature Source Skin 04/14/23 08:09 Pulse 72 04/14/23 08:09 Respiratory Rate 20 04/14/23 08:09 Respiratory Effort Normal, Non-Labored 04/14/23 08:27 Blood Pressure 119/63 04/14/23 08:09 Blood Pressure Position Sitting 04/14/23 08:09 Pulse Oximetry 97 04/14/23 08:09 Oxygen Delivery Method Room Air 04/14/23 08:09 Oxygen Flow Rate 0 04/14/23 08:09 Pain Level 10 04/14/23 08:09
[2023-04-14] MEDS: Breeza Beverage 473 ML BTL PO ×2 (08:54→08:55)
[2023-04-14] MEDS: Omnipaque 350 MG/ML 50 ML BTL PO (08:56)
[2023-04-14 09:00] LABS: Abs Immature Grans 0.04 10^3/uL (0.0-0.06); Absolute Basophil Count 0.05 10^3/uL (0.0-0.2); Absolute Eosinophil Count 0.22 10^3/uL (0.0-0.7); Absolute Lymphocyte Count 1.68 10^3/uL (1.2-3.4); Absolute Monocyte Count 0.77 10^3/uL (0.1-0.8); Absolute Neutrophil Count 7.39 10^3/uL (1.2-6.7); Basophils % 0.5; Eosinophils % 2.2; HCT 40.7 % (40.0-50.0); HGB 13.5 g/dL (13.5-17.5); Immature Grans % 0.4; Lymphocytes % 16.6; MCH 28.5 pg (27.0-33.0); MCHC 33.2 % (32.0-36.0); MCV 86 fL (80-95); Monocytes % 7.6; Neutrophils % 72.7; Platelet Count 326 10^3/uL (130-400); RBC 4.73 10^6/uL (4.36-5.78); RDW 13.4 % (11.8-14.1); RDW-SD 42.1 fL; WBC 10.15 10^3/uL (4.4-10.8)
[2023-04-14 09:22] VITALS: BP 126/64; PULSE 62; RESP 18; O2SAT 93
--- NOTE | 2023-04-14 09:23 | NUR.NOTE ---
Nursing Note: pt states this stuff is making me light headed (referring to the oral contrast), took pts vital signs, VSS, pt has taken oral contrast before with no problems, asked pt how I can help him and he stated loudly I dont know, Im not the nurse or the doctor, informed provider.
[2023-04-14 09:24] LABS: ALT 21 U/L (16-63); AST 15 U/L (15-37); Albumin 3.2 g/dL (3.4-5.0); Alkaline Phosphatase 105 U/L (46-116); BUN 14 mg/dL (7-18); Bilirubin, Total 0.3 mg/dL (0.2-1.0); CREATININE 0.9 mg/dL (0.70-1.30); Calcium 8.8 mg/dL (8.5-10.1); Chloride 106 mmol/L (98-107); Estimated GFR 92.45 (mL/min/1.73m2); Glucose 110 mg/dL (74-106); Lipase 34 U/L (16-77); Sodium 137 mmol/L (136-145); Total Protein 7.3 g/dL (6.4-8.2)
[2023-04-14] MEDS: Lidocaine 2% Jelly 6 ML SYR (10:11)
[2023-04-14] MEDS: Normal Saline - Diluent 50 ML VIAL IV (10:34)
[2023-04-14] MEDS: Omnipaque 350 MG/ML 100 ML BTL IJ (10:35)
--- NOTE | 2023-04-14 10:40 | NUR.NOTE ---
Nursing Note: attempted to in and out cath with provider, pt screamed take it out! provider tried to talk to patient about importance of obtaining urine. pt refused further placement of cath. pt crying i dont know what i want
--- NOTE | 2023-04-14 10:54 | NUR.NOTE ---
Nursing Note: this RN smiled at the patient while he was being transported to . patient stated Don't laugh at me this nurse told the patient that no one was laughing it was only a smile Patient rolled eyes at this RN and continued on to for his ordered scan.
--- NOTE | 2023-04-14 11:14 | NUR.NOTE ---
Nursing Note: cleaned patients penis and stephani area, placed barrier cream on irritated areas, gave pt dry brief.
[2023-04-14] MEDS: Magnesium Citrate 300 ML BTL 150 ML PO (12:26)
--- NOTE | 2023-04-14 13:11 | NUR.NOTE ---
Nursing Note: pt called this RN in to room and states in a jimenez tone What do you want me to do now?! as he was sitting on the commode. When I asked for the patient to clarify what he meant his stated he is not going to the bathroom I informed pt that he is not holding it in long enough for it to truly work, but told them I would talk to the provider. Pt stated in a frustrated tone Im just going to go home Informed provider.
--- NOTE | 2023-04-14 13:33 | NUR.NOTE ---
Nursing Note: PT needs [facility] follow up early next week for urinary incontinence, penile skin breakdown & refusing a catheter. Ivana, ED
[2023-04-14 13:43] VITALS: BP 126/64; PULSE 62; RESP 18; O2SAT 93
== END 2023-04-14 13:44 | disposition home or self-care (01) ==
PROVIDERS: Emergency Provider Nurse Practitioner Family; PCP Internal Medicine
DX: K59.00 Constipation, unspecified (principal); B37.49 Other urogenital candidiasis; R32 Unspecified urinary incontinence
CPT/HCPCS: 80053; 83690; 96365; 99284; 74177; 81003; 85025; J0131; J3490; Q9967

== ENCOUNTER 2023-09-02 08:55 | Emergency (ER) | payer OTHER, SELFPAY ==
[2023-09-02] VITALS (29 sets, daily range): BP systolic 100–152; BP diastolic 38–67; PULSE 58–96; RESP 18; O2SAT 85–92
--- NOTE | 2023-09-02 09:00 | RT.EKG_ITS ---
APPROVED REPORT Exam: Resting ECG Reason for Exam: Dizzy Patient Location: E HR:71 bpm ECG Measurements Heart Rate 71 AXIS NE 158 P 63 QRSd 82 QRS 36 QT 415 T 57 QTc 451 Conclusion Sinus rhythm rate 71 normal axis no acute ischemic changes
--- NOTE | 2023-09-02 09:33 | W.ED.GENAD ---
Discharge Plan Disposition Patient Disposition: Home Discharge Details Clinical Impression: Vertigo Primary Care Provider: Jane Wong ED Provider: Abhijit Ruiz Home Meds and New Rx's Prescriptions: New meclizine [Antivert] 25 mg tablet,chewable 25 mg PO TID PRN (Reason: dizziness) Qty: 14 0RF Continued diclofenac sodium 50 mg tablet,delayed release (DR/EC) 50 mg PO BID Patient Comments: 01-19-18 pt reports that he takes 50 mg BID. hb diltiazem HCl 240 mg capsule,extended release 24 hr 240 mg PO DAILY amlodipine 5 mg tablet 5 mg PO DAILY sertraline 25 mg Tablet 12.5 mg PO DAILY buprenorphine 10 mcg/hour Patch Weekly See Rx Instructions .ROUTE .COMPLEX Rx Instructions: 15 mcg/hr transdermally once weekly, change on Fridays atorvastatin [Lipitor] 40 mg tablet 60 mg PO DAILY lisinopril 10 mg tablet 40 mg PO DAILY clotrimazole 1 % cream 1 applic topical BID 14 Days Qty: 15 1RF aspirin 81 mg Tablet,Chewable 81 mg PO DAILY No Action Fiber Laxative(methylcellulos) 500 MG tablet 500 mg PO DAILY Patient Comments: 12-15-17 pt reports that he is holding this med for SX on 12-18-17. hb calcium carb and citrate-vitD3 600 mg calcium- 500 unit tablet extended release 1 tab PO BID Patient Comments: 12-15-17 pt reports that he is holding this med for SX on 12-18-17. hb Discharge Instructions Instructions: Vertigo (ED) Additional Instructions: At this time your work-up showed no emergent findings. Your blood pressure was noted to be slightly low. It is recommended that you hold your blood pressure medications until tomorrow. Stay well-hydrated and take the medications for your dizziness or nausea as prescribed. Return to the emergency department for any new or significant worsening of symptoms and follow-up with your primary care provider as needed. Referrals: Jane Wong [Primary Care Provider] - 3 days (for reassessment as needed) Medical Decision Making Patient presenting to the emergency department with chief complaint of dizziness. Patient reports that he has had episodes similar to this in the past but today's episode seems to be more severe. She states that is been intermittently going on for the past week during this episode with 1 week ago having a small spot of blood in emesis but otherwise the rest of the week with any further vomiting has had no noted blood and has been more bile-like. Patient states some night sweats but reports this has been going on a while, does state worsening dizziness with movement, double vision that is chronic due to amblyopia of left eye with prism lens correction that is failing per patient reports. Patient denies any chest pain but does state sensation of palpitations this morning, denies abdominal pain denies fever chills or other new symptoms. 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 With discussion of patient's symptoms he does state that he does have history of dizziness and diagnosis of vertigo but it has been a while since he has had symptoms. He does report some chronic left ear problems that precipitates his dizziness. Given the chronic visual abnormality hints exam is difficult to perform but noted right lateral gaze nystagmus, no other new neurological symptoms found beyond patient's baseline, normal cardiac exam, respiratory exam does show faint wheezing with dry cough observed consistent with patient's emphysema, no other focal findings noted. We will plan on checking labs and pending results will give fluid bolus, small dose of meclizine, and some Zofran. After review of labs we will plan on performing CTA imaging of brain and neck given no MRI availability. Please see physician interpretation for full interpretation of EKG but upon my review patient is in sinus rhythm, rate of 71, no findings to suggest acute STEMI otherwise nondiagnostic EKG. Review of labs showed no anemia or other significant remarkable findings on review of CBC, CMP shows a glucose of 143, slightly low albumin at 3.3 otherwise nondiagnostic labs. TSH was noted as being low at 0.27 but free T4 was within appropriate range. Patient is negative for COVID flu RSV. CT imaging did show some moderate carotid stenosis otherwise no acute findings are noted. Patient reassessed after receiving the meds and did state some slight improvement but on vital signs did have a little bit of diastolic hypotension. Patient states he has not eaten for the day or had anything to drink so we will feed patient we will also give some more meclizine as he was only given initial half dose. Patient was reassessed and stated significant improvement. Was able to ambulate through the room with normal use of cane which is his baseline. He did state some sudden movements did precipitate dizziness but was feeling better and requesting discharge home. Did discuss return and follow-up precautions but I suspect this is peripheral vertigo and doubt central source. Patient was encouraged again to return for new or worsening of symptoms. After discussion of diagnosis and plan of care patient has no further needs, questions, or concerns and states clear understanding to return to the emergency department for any worsening symptoms. This documentation was generated using Xigenation system, please disregard any oddities of phrase or misspellings. Imaging Data Radiologic Study: Imaging: CT Scan Radiologist's impression: Exam(s) PROCEDURE INFORMATION: Exam: CTA Head With Contrast, Arteriography Exam date and time: 09/02/2023 11:45 AM Age: 68 years old Clinical indication: Dizziness and giddiness TECHNIQUE: Imaging protocol: Computed tomographic angiography of the head with contrast. Exam focused on the arteries. 3D rendering (Not supervised by radiologist): MIP and/or 3D reconstructed images were created by the technologist. COMPARISON: HEAD^MRA COW 01/11/2018 1:38 PM FINDINGS: ANTERIOR CIRCULATION: Right internal carotid artery: Intracranial segment is patent with no significant stenosis. No aneurysm. Calcified plaque in the carotid siphon in the cavernous and paraophthalmic segment without hemodynamically significant stenosis. Right middle cerebral artery: No occlusion or significant stenosis. No aneurysm. Right anterior cerebral artery: No occlusion or significant stenosis. No aneurysm. Left internal carotid artery: Intracranial segment is patent with no significant stenosis. No aneurysm. There is calcification of the carotid siphon without hemodynamically significant stenosis. Left middle cerebral artery: No occlusion or significant stenosis. No aneurysm. Left anterior cerebral artery: No occlusion or significant stenosis. No aneurysm. POSTERIOR CIRCULATION: Right vertebral artery: No occlusion or significant stenosis. No aneurysm. Left vertebral artery: No occlusion or significant stenosis. No aneurysm. Basilar artery: No occlusion or significant stenosis. No aneurysm. Right posterior cerebral artery: No occlusion or significant stenosis. No aneurysm. Left posterior cerebral artery: No occlusion or significant stenosis. No aneurysm. Brain: Servin-white matter differentiation is within normal limits. No mass effect or midline shift. There are mild nonspecific patchy foci of periventricular white matter hypodensity, probably due to chronic microvascular ischemic changes. Sulci and basilar cisterns are prominent due to mild parenchymal volume loss. No extra-axial fluid collection. Cerebral ventricles: No ventriculomegaly. Paranasal sinuses: There is mucosal thickening in the left frontal sinus, frontoethmoidal recess and the left anterior ethmoidal air cells . Bones/joints: Unremarkable. No acute fracture. Soft tissues: Unremarkable. IMPRESSION: 1. No major vessel cut off or high-grade stenosis in the arteries of the [id number]-[id number]. 2. No intracranial aneurysm. 3. No acute intracranial abnormality on noncontrast CT. 4. Left frontoethmoidal sinus disease. PROCEDURE INFORMATION: Exam: CTA Neck With Contrast Exam date and time: 09/02/2023 11:45 AM Age: 68 years old Clinical indication: Dizziness and giddiness TECHNIQUE: Imaging protocol: Computed tomographic angiography of the neck with contrast. 3D rendering (Not supervised by radiologist): MIP and/or 3D reconstructed images were created by the technologist. COMPARISON: CTA BRAIN AND NECK 01/10/2018 10:59 PM FINDINGS: Right common carotid artery: No stenosis. No dissection or occlusion. Right internal carotid artery: Calcified and noncalcified plaque in the proximal right internal carotid artery with approximately 40-45% stenosis by NASCET criteria. No dissection or occlusion. Right external carotid artery: No occlusion or stenosis of the origin. Left common carotid artery: No stenosis. No dissection or occlusion. Left internal carotid artery: There is calcified and noncalcified plaque in the proximal left internal carotid artery with approximately 40-45% stenosis by NASCET criteria. Left external carotid artery: No occlusion or stenosis of the origin. Right vertebral artery: No stenosis. No dissection or occlusion. Left vertebral artery: No stenosis. No dissection or occlusion. Aorta: Mild calcification of arch of aorta.. Soft tissues: Normal. No significant soft tissue swelling. Bones/joints: Disc degenerative changes with multilevel moderate loss of disc height in the cervical spine at C5-C6, C6-C7 and C7-T1. Lungs: There are bilateral centrilobular emphysematous changes in the lungs. Mild ground-glass densities in the posterior right upper lobe which may represent atelectasis IMPRESSION: 1. 40-45% stenosis in the bilateral internal carotid arteries in the neck due to calcified and noncalcified plaque. There is no occlusion. 2. No significant stenosis or occlusion in the vertebral arteries in the neck. REFERENCES: NASCET CRITERIA. The degree of stenosis in the cervical segment of the internal carotid artery is based on NASCET criteria. Normal is no stenosis. Mild is less than 50% stenosis. Moderate is 50-69% stenosis. Severe is 70% to 99% stenosis. Total occlusion is no detectable patent lumen. Lab Data Lab results reviewed: Yes I reviewed the patient's lab results. HPI General Mode of arrival: ambulatory. Date/Time Provider Initiated Documentation: 09/02/23 08:56. Limitations to Documentation: no limitations. Information obtained by: patient and family. History of Present Illness 68 year old M presents to the emergency department with the chief complaint of Intermittent dizziness, described as moderate, severe and similar to prior episodes, Patient started experiencing this week(s) (1) and it has been intermittent. No relieving factors improve symptom(s), No exacerbating factors reported . Patient did receive the following treatments prior to arrival, none Related Data Home Medications Medication Instructions Recorded Confirmed methylcellulose (laxative) 500 mg 500 mg PO DAILY 06/30/16 04/14/23 tablet (Fiber Laxative (methylcellulose)) aspirin 81 mg chewable tablet 81 mg PO DAILY 09/12/18 04/14/23 diclofenac sodium 50 mg 50 mg PO BID 02/11/19 04/14/23 tablet,delayed release calcium carb,cit ER 600 mg-vit D3 1 tab PO BID 09/07/20 04/14/23 12.5 mcg (500 unit) tablet,ext.rel amlodipine 5 mg tablet 5 mg PO DAILY 04/14/23 04/14/23 atorvastatin 40 mg tablet (Lipitor) 60 mg PO DAILY 04/14/23 04/14/23 buprenorphine 10 mcg/hour weekly See Rx Instructions .Route .COMPLEX 04/14/23 04/14/23 transdermal patch clotrimazole 1 % topical cream 1 applic topical BID 2 weeks #15 04/14/23 grams diltiazem HCl 240 mg capsule,24 240 mg PO DAILY 04/14/23 04/14/23 hr,extended release lisinopril 10 mg tablet 40 mg PO DAILY 04/14/23 04/14/23 sertraline 25 mg tablet 12.5 mg PO DAILY 04/14/23 04/14/23 meclizine 25 mg chewable tablet 25 mg PO TID PRN dizziness #14 tabs 09/02/23 (Antivert) Previous Rx's Medication Instructions Recorded clotrimazole 1 % topical cream 1 applic topical BID 2 weeks #15 04/14/23 grams meclizine 25 mg chewable tablet 25 mg PO TID PRN dizziness #14 tabs 09/02/23 (Antivert) Allergies Allergy/AdvReac Type Severity Reaction Status Date / Time gluten Allergy Unknown Unverified 04/14/23 08:17 ciprofloxacin HCl AdvReac Intermediate Nausea Unverified 04/14/23 08:17 [From Cipro] esomeprazole magnesium AdvReac Intermediate Diarrhea Unverified 04/14/23 08:17 [From Nexium] General Stated Complaint: Dizzy/Sync GEORGETTE: 3 Review of Systems Constitutional Constitutional: Denies headache(s) and Reports night sweats Eyes Eyes: Reports diplopia and Reports requires corrective lenses ENT Ears, Nose, Mouth, and Throat: Reports dizziness, Denies headache(s), Denies nasal congestion and Denies sore throat Cardiovascular Cardiovascular: Reports chest pain, Denies syncope, Reports rapid heart rate and Denies dyspnea Respiratory Respiratory: Reports cough (Chronic due to emphysema) and Denies dyspnea Gastrointestinal Gastrointestinal: Denies abdominal pain, Denies melena, Denies hematochezia, Reports nausea, Reports vomiting and Reports hematemesis (Small amount less than dime size 1 week ago) Integumentary/Breasts Skin/Breast: Denies rash Neurologic Neurologic: Denies confusion, Reports dizziness, Denies syncope and Denies headache(s) Psychiatric Psychiatric: Denies confusion PFSH All Active Problems (Updated 09/02/23 @ 14:37 by Abhijit Ruiz NP) Vertigo (Acute) Right carotid bruit (Acute) Carotid ultrasound with 50 to 69% stenosis bilaterally. Tinnitus of left ear (Acute) HTN (hypertension) (Chronic) Nicotine dependence (Acute 08/06/13) Impaired fasting glucose (Chronic) Lung nodule (Chronic) Smoker (Acute 10/02/14) Prostate cancer (Acute 10/02/14) s/p surgery and radiation Hyperlipidemia (Acute 07/20/17) Patient with negative Doppler carotid study or significant obstructive disease requiring surgical intervention. We will continue monitoring. We will increase his atorvastatin to 60 mg daily due to his low HDL and relatively high. He refuses to stop smoking. We will see him back in 3 months and lipid panel. HH (hiatus hernia) (Acute 08/29/16) Celiac disease (Acute 09/26/16) Medical History Parotid neoplasm (12/15/17) Biopsy negative. Family history of diabetes mellitus (10/02/14) Family history of cardiac disorder (10/02/14) Surgical History Status post prostatectomy Excision, Tumor [facility] [place]/18/17; PAROTID TUMOR OR GLAND, LATERAL LOBE Family History Mother , KIDNEY DISEASE at age 80. No problems noted. Father Diabetes Heart disease Sister Diabetes Heart disease Brother Stroke Brother Cancer Social History Smoking/Tobacco Use Status: Current every day Tobacco Type: cigarettes Tobacco: How many years used: 53 Quit status: not considering quitting Smoking risk assessment performed?: Yes Alcohol Intake: never Drug use: Never Substance use type: does not use Caregiver/Support person: Yes Household members: spouse Housing: house Communication Needs: Hard of Hearing Do you need help understanding health information?: Never Pets and animals: Yes Pets and animals: cat(s) Sexually active: No Do you think of yourself as: straight/heterosexual Current gender identity: male What is your relationship status?: How often do you talk on the phone with friends or family?: three or more times per week How often do you get together with friends or relatives?: once per week How often do you attend latter day or restorationism services?: decline to answer Do you belong to any clubs or organized social groups?: no Panel score (0-1 are the most socially isolated patients): 2 What type of physical activity do you participate in: walking Duration: decline to answer Frequency: daily Colleen/Islam: No preference Special colleen needs: No Seatbelt use: always Drive intox or ride w/intox tour driver: No Do you feel safe at home: Yes Do you feel safe in your relationship?: Yes Exam Const General: cooperative and no acute distress Orientation: alert, awake and oriented x3 HENMT Head: normal to inspection Ears: hearing grossly normal bilaterally and TM's normal bilaterally Mouth: oral mucosae normal and moist mucous membranes Throat: posterior oropharynx normal Eyes Alignment and Position: alignment abnormal left exotropia Periorbital: periorbital findings normal Eyelids: eyelids normal Conjunctivae: conjunctivae normal EOM: nystagmus Neck Neck: normal visual inspection, full ROM and no meningeal signs Resp Effort & Inspection: normal respiratory effort, able to speak in complete sentences and cough Quality of cough: dry Auscultation: wheezes (Faint) expiratory wheezes Cardio Rate: regular rate Rhythm: regular rhythm Heart Sounds: S1 normal and S2 normal Neuro General: patient alert, patient awake, patient oriented x3, gait normal, tone normal, moves all extremities and not confused Cranial Nerves: nystagmus Cognition: normal cognition Speech: speech normal Motor: muscle tone normal throughout Sensory Exam: no sensory deficits noted Course Vital Signs Vital signs: Vital Signs Pulse 71 09/02/23 09:05 Respiratory Rate 18 09/02/23 09:05 Blood Pressure 137/40 L 09/02/23 09:05 Pulse Oximetry 91 L 09/02/23 09:05 Pulse 71 09/02/23 09:05 Respiratory Rate 18 09/02/23 09:05 Respiratory Effort Normal, Non-Labored, Accessory Muscle Use 09/02/23 09:09 Blood Pressure 137/40 L 09/02/23 09:05 Pulse Oximetry 91 L 09/02/23 09:05 Oxygen Delivery Method Room Air 09/02/23 09:05 Oxygen Flow Rate 0 09/02/23 09:05
[2023-09-02 10:02] LABS: Abs Immature Grans 0.04 10^3/uL (0.0-0.06); Absolute Basophil Count 0.04 10^3/uL (0.0-0.2); Absolute Eosinophil Count 0.09 10^3/uL (0.0-0.7); Absolute Lymphocyte Count 1.26 10^3/uL (1.2-3.4); Absolute Monocyte Count 0.51 10^3/uL (0.1-0.8); Absolute Neutrophil Count 8.15 10^3/uL (1.2-6.7); Basophils % 0.4; Eosinophils % 0.9; HCT 41.4 % (40.0-50.0); HGB 13.7 g/dL (13.5-17.5); Immature Grans % 0.4; Lymphocytes % 12.5; MCH 28.6 pg (27.0-33.0); MCHC 33.1 % (32.0-36.0); MCV 86 fL (80-95); MPV 9.1 fL (8.0-11.0); Monocytes % 5.1; Neutrophils % 80.7; Platelet Count 321 10^3/uL (130-400); RBC 4.79 10^6/uL (4.36-5.78); RDW 12.9 % (11.8-14.1); RDW-SD 41.1 fL; WBC 10.09 10^3/uL (4.4-10.8)
[2023-09-02] MEDS: Meclizine 12.5 MG TAB PO (10:10)
[2023-09-02] MEDS: Normal Saline 500 ML IV (10:24)
[2023-09-02] MEDS: Ondansetron O.D.T. 4 MG TABEF PO (10:25)
[2023-09-02 10:27] LABS: ALT 23 U/L (16-63); AST 15 U/L (15-37); Albumin 3.3 g/dL (3.4-5.0); Alkaline Phosphatase 109 U/L (46-116); Anion Gap 5.8 mmol/L (3-11); BUN 14 mg/dL (7-18); Bilirubin, Total 0.3 mg/dL (0.2-1.0); CO2 27.2 mmol/L (21.0-32.0); CREATININE 0.8 mg/dL (0.70-1.30); Calcium 9.3 mg/dL (8.5-10.1); Chloride 105 mmol/L (98-107); Glucose 143 mg/dL (74-106); Sodium 138 mmol/L (136-145); TSH (W/Ref FT4) 0.27 uIU/mL (0.36-3.74); Total Protein 7.7 g/dL (6.4-8.2); Troponin I < 50 ng/L (<or=60)
[2023-09-02 10:52] LABS: FREE T4 1.28 ng/dL (0.76-1.46)
--- NOTE | 2023-09-02 11:00 | DI.CT_ITS ---
Exam(s) CT BRAIN NECK CTA EXAM: CT BRAIN NECK CTA CLINICAL HISTORY: dizziness. TECHNIQUE: Imaging Protocol: Axial CT angiography was performed with multi-slice acquisition and mu lti-planar and/or 3D reconstructions. CONTRAST MATERIAL: Intravenous: Omnipaque 350 Contrast volume:structured data in ml COMPARISON: CT CT ABDOMEN PELVIS W from 04/14/2023 FINDINGS: CTA Neck W: Aortic arch anatomy: The aortic arch anatomy is conventional and there is no significant stenosis at the origin of the great vessels off of the aortic arch. No intimal flap evident. Anterior circulation: Both common carotid arteries ascend with normal luminal diameters. At the level the carotid bulbs there is calcified and noncalcified plaque noted bilaterally and exten ding into the proximal internal carotid arteries. Estimated at approximately 50 percent stenosis em aterally at these levels. Above this level the internal carotid arteries are patent in the upper nec k and skull base-carotid canals. Posterior circulation: Both vertebral arteries originate in conventional fashion off of the subclavian arteries and there is no obvious stenosis at the origin of the vertebral arteries. Both vertebral arteries exhibit normal luminal diameters within the foramen transversarium. No evidence of intraluminal thrombus nor dissection. Both vertebral arteries contribute to the formation of the basilar artery at the skull base. CTA Brain W: Anterior circulation: Both internal carotid arteries are patent in the skull base-carotid canals. Both internal carotid ar teries are heavily calcified within the cavernous sinuses. Supraclinoid aspects are patent and nonan eurysmal. Both A1 segments are patent. There is no obvious aneurysm at the level of the anterior co mmunicating artery. The supraclinoid aspects of the ICAs are patent. Both A1 segments are patent as are the anterior cer ebral arteries and there is no evidence of aneurysm at the level of the anterior communicating artery . Both middle cerebral arteries are patent with no evidence of significant stenosis nor intraluminal th rombus. There also no aneurysms of these vessels. Posterior circulation: The basilar artery ascends in the midline. Distally it gives off patent bilateral superior cerebella r arteries. Above this level the basilar artery terminates as patent bilateral posterior cerebral arteries. There is no evidence of aneurysm at the tip of the basilar artery nor elsewhere in the [id number] is. CT BRAIN: There is no evidence of intracranial hemorrhage, mass effect, or shift of midline structures. There are no extra-axial fluid collections. Ventricles are not enlarged or shifted. There are no ring enh ancing lesions in the brain and no abnormal meningeal enhancement. IMPRESSION: 1. There is both calcified and noncalcified plaque at the level of the carotid bulbs and proximal int ernal carotid arteries on both sides the neck. Amount of stenosis is estimated at 50 percent bilater ally. No occlusion. 2. Patent vertebral arteries. 3. Patent intracranial arteries. 4. No acute intracranial findings. No abnormal ring-enhancing lesions in the brain and no abnormal m eningeal enhancement. RADIATION DOSE DELIVERED: Total DLP DATA REPOSITORY: All CT scans at this facility are submitted to the National Radiology Data Registry (NRDR) Dose Index Registry (DIR) with the [employer] (ACR). RADIATION OPTIMIZATION: All CT scans at this facility use at least one of these dose optimization te chniques: automated exposure control; mA and/or kV adjustment per patient size (includes targeted exa ms where dose is matched to clinical indication); or iterative reconstruction.
[2023-09-02 11:01] LABS: COVID-19 PCR Negative (Negative); Influenza A PCR Negative (Negative); Influenza B PCR Negative (Negative); RSV PCR Negative (Negative)
[2023-09-02 11:02] LABS: Source Nasopharynx
[2023-09-02] MEDS: Omnipaque 350 MG/ML 100 ML BTL IJ (11:49)
--- NOTE | 2023-09-02 12:41 | DI.VRAD_ITS ---
PROCEDURE INFORMATION: Exam: CTA Head With Contrast, Arteriography Exam date and time: 09/02/2023 11:45 AM Age: 68 years old Clinical indication: Dizziness and giddiness TECHNIQUE: Imaging protocol: Computed tomographic angiography of the head with contrast. Exam focused on the arteries. 3D rendering (Not supervised by radiologist): MIP and/or 3D reconstructed images were created by the technologist. COMPARISON: HEAD^MRA COW 01/11/2018 1:38 PM FINDINGS: ANTERIOR CIRCULATION: Right internal carotid artery: Intracranial segment is patent with no significant stenosis. No aneurysm. Calcified plaque in the carotid siphon in the cavernous and paraophthalmic segment without hemodynamically significant stenosis. Right middle cerebral artery: No occlusion or significant stenosis. No aneurysm. Right anterior cerebral artery: No occlusion or significant stenosis. No aneurysm. Left internal carotid artery: Intracranial segment is patent with no significant stenosis. No aneurysm. There is calcification of the carotid siphon without hemodynamically significant stenosis. Left middle cerebral artery: No occlusion or significant stenosis. No aneurysm. Left anterior cerebral artery: No occlusion or significant stenosis. No aneurysm. POSTERIOR CIRCULATION: Right vertebral artery: No occlusion or significant stenosis. No aneurysm. Left vertebral artery: No occlusion or significant stenosis. No aneurysm. Basilar artery: No occlusion or significant stenosis. No aneurysm. Right posterior cerebral artery: No occlusion or significant stenosis. No aneurysm. Left posterior cerebral artery: No occlusion or significant stenosis. No aneurysm. Brain: Servin-white matter differentiation is within normal limits. No mass effect or midline shift. There are mild nonspecific patchy foci of periventricular white matter hypodensity, probably due to chronic microvascular ischemic changes. Sulci and basilar cisterns are prominent due to mild parenchymal volume loss. No extra-axial fluid collection. Cerebral ventricles: No ventriculomegaly. Paranasal sinuses: There is mucosal thickening in the left frontal sinus, frontoethmoidal recess and the left anterior ethmoidal air cells . Bones/joints: Unremarkable. No acute fracture. Soft tissues: Unremarkable. IMPRESSION: 1. No major vessel cut off or high-grade stenosis in the arteries of the [id number]. 2. No intracranial aneurysm. 3. No acute intracranial abnormality on noncontrast CT. 4. Left frontoethmoidal sinus disease. PROCEDURE INFORMATION: Exam: CTA Neck With Contrast Exam date and time: 09/02/2023 11:45 AM Age: 68 years old Clinical indication: Dizziness and giddiness TECHNIQUE: Imaging protocol: Computed tomographic angiography of the neck with contrast. 3D rendering (Not supervised by radiologist): MIP and/or 3D reconstructed images were created by the technologist. COMPARISON: CTA BRAIN AND NECK 01/10/2018 10:59 PM FINDINGS: Right common carotid artery: No stenosis. No dissection or occlusion. Right internal carotid artery: Calcified and noncalcified plaque in the proximal right internal carotid artery with approximately 40-45% stenosis by NASCET criteria. No dissection or occlusion. Right external carotid artery: No occlusion or stenosis of the origin. Left common carotid artery: No stenosis. No dissection or occlusion. Left internal carotid artery: There is calcified and noncalcified plaque in the proximal left internal carotid artery with approximately 40-45% stenosis by NASCET criteria. Left external carotid artery: No occlusion or stenosis of the origin. Right vertebral artery: No stenosis. No dissection or occlusion. Left vertebral artery: No stenosis. No dissection or occlusion. Aorta: Mild calcification of arch of aorta.. Soft tissues: Normal. No significant soft tissue swelling. Bones/joints: Disc degenerative changes with multilevel moderate loss of disc height in the cervical spine at C5-C6, C6-C7 and C7-T1. Lungs: There are bilateral centrilobular emphysematous changes in the lungs. Mild ground-glass densities in the posterior right upper lobe which may represent atelectasis IMPRESSION: 1. 40-45% stenosis in the bilateral internal carotid arteries in the neck due to calcified and noncalcified plaque. There is no occlusion. 2. No significant stenosis or occlusion in the vertebral arteries in the neck. REFERENCES: NASCET CRITERIA. The degree of stenosis in the cervical segment of the internal carotid artery is based on NASCET criteria. Normal is no stenosis. Mild is less than 50% stenosis. Moderate is 50-69% stenosis. Severe is 70% to 99% stenosis. Total occlusion is no detectable patent lumen. Dictated and Authenticated by: Calos Rolon MD. Ordering:MIRANDA Lacey MD
[2023-09-02] MEDS: Meclizine 25 MG TAB PO (14:10)
== END 2023-09-02 15:14 | disposition home or self-care (01) ==
PROVIDERS: Emergency Provider Nurse Practitioner Family; PCP Internal Medicine
DX: R42 Dizziness and giddiness (principal); R11.2 Nausea with vomiting, unspecified; I10 Essential (primary) hypertension; E78.5 Hyperlipidemia, unspecified; F17.210 Nicotine dependence, cigarettes, uncomplicated; Z79.82 Long term (current) use of aspirin
CPT/HCPCS: 70496; 70498; 80053; 86850; 86900; 86901; 87637; 93005; 96360; 99285; 83735; 84439; 84443; 84484; 85025; 93010; 99284; J3490

== ENCOUNTER 2025-09-29 07:52 | Emergency (ER) | payer OTHER, SELFPAY ==
[2025-09-29] VITALS (25 sets, daily range): BP systolic 160–209; BP diastolic 53–83; PULSE 63–83; RESP 14–26; O2SAT 92–96
--- NOTE | 2025-09-29 07:45 | RT.EKG_ITS ---
APPROVED REPORT Exam: Resting ECG Reason for Exam: Chest pain Patient Location: E HR:75 bpm ECG Measurements Heart Rate 75 AXIS VA 155 P 62 QRSd 78 QRS 29 QT 403 T 60 QTc 449 Conclusion Sinus rhythm...normal P axis, V-rate 60- 99 No Occlusion SC
--- NOTE | 2025-09-29 08:00 | DI.RAD_ITS ---
Exam(s) XR CHEST 2V PA LATERAL EXAM: XR CHEST 2V PA LATERAL CLINICAL HISTORY: Chest pain TECHNIQUE: 2D digital imaging was performed. Two views. COMPARISON: CR,XR XR CHEST 2V PA LATERAL from 01/01/2020 FINDINGS: HEART: Normal size. Aorta: Not dilated. PULMONARY VASCULATURE: Normal. MEDIASTINUM: Unremarkable. LUNGS: Clear. PLEURAL SPACE: No pleural effusion or pneumothorax. BONE:Unremarkable for age. SOFT TISSUES: Unremarkable. IMPRESSION: No acute abnormality. DATA REPOSITORY: RADIATION DOSE DELIVERED:
[2025-09-29 08:15] LABS: Abs Immature Grans 0.03 10^3/uL (0.0-0.06); HCT 41.4 % (40.0-50.0); HGB 13.3 g/dL (13.5-17.5); Immature Grans % 0.3 %; MCH 27.0 pg (27.0-33.0); MCHC 32.1 % (32.0-36.0); MCV 84 fL (80-95); MPV 8.8 fL (8.0-11.0); Platelet Count 324 10^3/uL (130-400); RBC 4.93 10^6/uL (4.36-5.78); RDW 13.2 % (11.8-14.1); RDW-SD 40.8 fL; WBC 9.09 10^3/uL (4.4-10.8)
--- NOTE | 2025-09-29 08:28 | W.ED.GENAD ---
Discharge Plan Disposition Patient Disposition: Home Condition: Good Discharge Details Clinical Impression: Chest pain, Chest pain, exertional Primary Care Provider: Jane Wong ED Provider: Yareli Adler Home Meds and New Rx's Prescriptions: Continued Fiber Laxative(methylcellulos) 500 MG tablet 500 mg PO DAILY calcium carb, citrate-vit D3 600 mg calcium- 500 unit tablet extended release 1 tab PO BID diclofenac sodium 50 mg tablet,delayed release (DR/EC) 50 mg PO BID diltiazem HCl 240 mg capsule,extended release 24 hr 240 mg PO DAILY amlodipine 5 mg tablet 5 mg PO DAILY sertraline 25 mg Tablet 150 mg PO DAILY buprenorphine 10 mcg/hour Patch Weekly See Rx Instructions .ROUTE .COMPLEX Rx Instructions: 15 mcg/hr transdermally once weekly, change on Fridays atorvastatin [Lipitor] 40 mg tablet 20 mg PO DAILY Patient Comments: 20 mg per provided med list 09/29/25 lisinopril 10 mg tablet 40 mg PO DAILY clotrimazole 1 % cream 1 applic topical BID 14 Days Qty: 15 1RF docusate sodium 100 mg capsule 100 mg PO DAILY aspirin 81 mg Tablet,Chewable 81 mg PO DAILY meclizine [Antivert] 25 mg tablet,chewable 25 mg PO TID PRN (Reason: dizziness) Qty: 14 0RF Discharge Instructions Instructions: Chest Pain, Adult ED Additional Instructions: As we discussed, your exam and workup here has been very reassuring. I am concerned that you are still at risk for heart disease but feel that this is more of a chronic issue rather than an emergent issue. I do not want this to be able to progress and get any worse, therefore I do recommend that you follow-up with your primary care in about 1 week and discuss the possible completion of a stress test or other diagnostic test for your exertional chest pain. Please continue to monitor your symptoms, please take note of any changes or worsening symptoms. If you do develop any new or worsening symptoms please seek care emergently once again. Please continue with your medications as prescribed. Your PSA test is still pending and may take a few days to come back. [facility] and [facility] once these tests have returned. Stand Alone Forms: Portal Information Referrals: Jane Wong [Primary Care Provider] [facility] General Date/Time Provider Initiated Documentation: 09/29/25 07:56. Limitations to Documentation: no limitations. Information obtained by: patient, family () and RN notes reviewed. History of Present Illness 70 year old M presents to the emergency department with the chief complaint of exertional chest pain, described as moderate, Quality is described as aching, and is localized to the chest. Patient reports no radiation. Patient started experiencing this month(s) and it has been now resolved. Rest improves symptom(s), Movement worsens symptoms (exertion) . Patient notes chest pain, malaise ( reports he has been more fatigued than typical) and shortness of breath (with exertion, sounds like this is more part of the fatigue than separate issue); denies cough, fever/chills, loss of appetite, nausea/vomiting, rash, syncope and weakness. Patient did receive the following treatments prior to arrival, none Related Data Home Medications Medication Instructions Recorded Confirmed methylcellulose (laxative) 500 mg 500 mg PO DAILY 06/30/16 09/29/25 tablet (Fiber Laxative (methylcellulose)) aspirin 81 mg chewable tablet 81 mg PO DAILY 09/12/18 09/29/25 diclofenac sodium 50 mg 50 mg PO BID 02/11/19 09/29/25 tablet,delayed release calcium ER 600 mg (as carb,cit)-D3 1 tab PO BID 09/07/20 09/29/25 12.5 mcg (500 unit) tablet, ext.rel amlodipine 5 mg tablet 5 mg PO DAILY 04/14/23 09/29/25 atorvastatin 40 mg tablet (Lipitor) 20 mg PO DAILY 04/14/23 09/29/25 buprenorphine 10 mcg/hour weekly See Rx Instructions .Route .COMPLEX 04/14/23 09/29/25 transdermal patch clotrimazole 1 % topical cream 1 applic topical BID 2 weeks #15 04/14/23 09/29/25 grams diltiazem HCl 240 mg capsule,24 240 mg PO DAILY 04/14/23 09/29/25 hr,extended release lisinopril 10 mg tablet 40 mg PO DAILY 04/14/23 09/29/25 sertraline 25 mg tablet 150 mg PO DAILY 04/14/23 09/29/25 meclizine 25 mg chewable tablet 25 mg PO TID PRN dizziness #14 tabs 09/02/23 09/29/25 (Antivert) docusate sodium 100 mg capsule 100 mg PO DAILY 09/29/25 09/29/25 Previous Rx's Medication Instructions Recorded clotrimazole 1 % topical cream 1 applic topical BID 2 weeks #15 04/14/23 grams meclizine 25 mg chewable tablet 25 mg PO TID PRN dizziness #14 tabs 09/02/23 (Antivert) Allergies Allergy/AdvReac Type Severity Reaction Status Date / Time gluten Allergy Unknown Other (See Unverified 09/29/25 08:02 Comment) ciprofloxacin HCl (From AdvReac Intermediate Nausea Unverified 09/29/25 08:02 Cipro) esomeprazole magnesium (From AdvReac Intermediate Diarrhea Unverified 09/29/25 08:02 Nexium) General Stated Complaint: Chest Pain GEORGETTE: 2 Review of Systems Constitutional Constitutional: Reports as per HPI, Denies chills, Denies fever(s), Denies headache(s) and Denies poor appetite Eyes Eyes: Denies change in vision ENT Ears, Nose, Mouth, and Throat: Denies dizziness and Denies headache(s) Cardiovascular Cardiovascular: Reports as per HPI and Denies dyspnea Respiratory Respiratory: Reports as per HPI, Denies chest congestion, Denies cough, Denies pain on inspiration, Denies pain with cough and Denies dyspnea Gastrointestinal Gastrointestinal: Reports as per HPI, Denies abdominal pain, Denies diarrhea, Denies nausea and Denies vomiting Genitourinary Genitourinary: Denies system reviewed and no additional complaints, except as documented (denies change in urinary habits) Musculoskeletal Musculoskeletal: Reports as per HPI and Denies back pain Integumentary/Breasts Skin/Breast: Reports as per HPI and Denies rash Neurologic Neurologic: Reports as per HPI, Denies dizziness and Denies headache(s) Exam Const General: cooperative, healthy appearing, comfortable, no acute distress and well developed Nutritional Appearance: average body habitus and well nourished Orientation: alert, awake and oriented x3 HENMT Head: normal to inspection Ears: hearing grossly normal bilaterally Mouth: moist mucous membranes Chest Chest: normal inspection of the chest, normal palpation of entire chest wall and no crepitus Resp Effort & Inspection: normal respiratory effort, able to speak in complete sentences and no respiratory distress Auscultation: clear to auscultation bilaterally, no rales, no rhonchi and no wheezes Cardio Rate: regular rate Rhythm: regular rhythm Heart Sounds: S1 normal and S2 normal GI Inspection: normal to inspection, no edema and non-distended Palpation: soft, no guarding and nontender Auscultation: normal bowel sounds Skin General skin exam: no rashes or lesions noted Trauma: no lacerations or abrasions Neuro General: patient alert, patient awake and patient oriented x3 Cognition: normal cognition Speech: speech normal Gait: normal gait Extrem General: normal to inspection, capillary refill normal, no pedal edema, no calf tenderness and normal gait Course Vital Signs Vital signs: Vital Signs Pulse 81 09/29/25 07:54 Respiratory Rate 14 09/29/25 07:54 Blood Pressure 178/60 H 09/29/25 07:54 Pulse Oximetry 96 09/29/25 07:54 Pulse 81 09/29/25 07:54 Respiratory Rate 16 09/29/25 08:21 Respiratory Effort Normal, Non-Labored 09/29/25 08:21 Respiratory Depth Normal 09/29/25 08:21 Respiratory Pattern Normal 09/29/25 08:21 Blood Pressure 178/60 H 09/29/25 07:54 Blood Pressure Position Sitting 09/29/25 07:54 Pulse Oximetry 96 09/29/25 07:54 Oxygen Delivery Method Room Air 09/29/25 07:54 Oxygen Flow Rate 0 09/29/25 07:54 Pain Level 10 09/29/25 07:54 Lab/Test Results Lab/Test Results: Laboratory Tests Range/Units 09/29/25 08:07 WBC (4.4-10.8) 10^3/uL 9.09 RBC (4.36-5.78) 10^6/uL 4.93 Hgb (13.5-17.5) g/dL 13.3 L Hct (40.0-50.0) % 41.4 MCV (80-95) fL 84 MCH (27.0-33.0) pg 27.0 MCHC (32.0-36.0) % 32.1 RDW (11.8-14.1) % 13.2 Plt Count (130-400) 10^3/uL 324 MPV (8.0-11.0) fL 8.8 Immature Gran % % 0.3 Neutrophils % % 76.6 Lymphocytes % % 15.8 Monocytes % % 5.1 Eosinophils % % 1.5 Basophils % % 0.7 Nucleated RBC % (0.0-0.3) % 0.0 Absolute Neutrophils (1.2-6.7) 10^3/uL 6.96 H Absolute Lymphocytes (1.2-3.4) 10^3/uL 1.44 Absolute Monocytes (0.1-0.8) 10^3/uL 0.46 Absolute Eosinophils (0.0-0.7) 10^3/uL 0.14 Absolute Basophils (0.0-0.2) 10^3/uL 0.06 TSH Cancelled Medical Decision Making Patient is a 70-year-old gentleman with past medical history significant for prostate cancer, emphysema, peripheral vascular disease, hypertension, elevated heart rate, presented with chief complaint of exertional chest pain. He reports that this discomfort has been present intermittently for months. States that when the pain becomes severe can radiate towards the left shoulder. Does not seem to have slowed him down from doing much although the patient does report that he is not overly physically active. He also reports that for the past few months he has had vomiting that has occurred about 3 times per week, typically in the morning or after eating in the afternoon. This is not associated with times of chest pain, typically occurs shortly after eating. He denies any recent illness. Denies any cough, cold, fever/chills. also reports that he has had some hematuria. Patient continues to be monitored for his prostate cancer although he is status post prostatectomy. Patient reports that he is chronically incontinent, struggled with urinary catheter placements in the past. They report that his oncology team had wanted a another PSA completed as they are using this to determine what other type of supportive measures they can offer the patient although he is no longer a candidate for chemo, radiation or further surgical intervention per patient and . Patient is typically followed at the [facility]. He denies any prior MN, has had his [facility] issues in [facility]. Patient did not take any of his morning medications today. He also describes an elevated heart rate in the 200s, unknown cause but does describe having worn a Holter monitor a few times historically. On exam, patient appears nontoxic. Is resting comfortably no acute distress. Patient is hypertensive with a blood pressure of 178/60 but again, patient did not take his morning medications. He is not tachycardic currently. He does not appear short of breath. He is relaxing comfortably. He does have diminished breath sounds based on chart review, this does appear like it may have been chronic. He did not does not have any wheezing, is not hypoxic, no evidence at this time to suggest emphysema exacerbation. Patient does continue to smoke about a pack a day. Normal cardiac exam. No murmurs rubs or gallops. Patient does report that he has had murmurs in the past but I was not able to appreciate this on today's exam. Abdomen is benign with no peritoneal findings. He has no lower extremity edema. He has bilateral intact pulses with the right being slightly greater than the left, this does sound to be the patient's baseline. While patient does have multiple concerns at this time including weight loss, hematuria, chest pain, my primary concern today is the exertional chest pain as this does increase my concern for ACS. As this has been going on for few months now, and patient is hemodynamically stable, as well as having a reassuring EKG, unlikely to be having an emergent event but patient will likely need urgent evaluation with cardiology. EKG was obtained and reviewed by Dr. Whitney. No STEMI noted. Also considered electrolyte derangement given the patient's vomiting although his does report that he is been trying to stay hydrated. Also consider other causes of chest discomfort such as GERD, particularly with his regular vomiting, along cancer with his history of smoking versus other. Will obtain chest x-ray and labs. With the chronicity of the symptoms as well as reassuring vital signs, PE unlikely. He is not been having the increased pulse recently, describes rate in the 200s that occurred last summer when he was previously evaluated by his primary care provider. Imaging and labs are reassuring with no signficant abnormalities. Discussed with patient. Deltra troponin pending. Considered CTA to evaluate for any other abnormality such as CA, PE, but patient states that he had a CTA a few weeks ago at the [facility]. Unclear why he had this test, likely screening associated with smoking but he does report it was completed with contrast. He states that this test was normal. He states he has a cardiac MRI in December. He has not had stress test, states he is unable to tolerate treadmill test. As sytmpoms have been on going for some time, considering stable angina. He reports that his symptoms have begun at the ssame distance with ambulation. Describes walking from car, up his ramp and into his home causing his discomfort. States this distance has been stable. Will [facility] to the [facility] regarding these concerns. Again, as he has had a CTA since symptoms started, will hold off on rescanning him. Discussed these findings with the patient and his . They feel comfortable going home at this point. Again, [facility] did complete a [facility] recently which patient reports was normal. I have not yet heard back from the [facility] but hopefully will be able to update them soon. I did discuss with him the need for outpatient stress test, particularly given his cardiac history. However, as symptoms have been fairly consistent and he has not had any recent exacerbation, more likely to be a stable angina rather than unstable angina or something that needs emergent immediate intervention. I encourage close follow-up with primary care, discussed strict return precautions. Encouraged to continue with his primary care. Encouraged that he continue with his medications, he had not taken those this morning. I also was able to obtain a urinalysis but this was contaminated. Patient had declined any catheter placement. All of his questions and concerns were addressed and he is in agreement this plan. Dictation completed using [employer] dictation software. Please excuse any errors or heater furnace anomalies that may remain. PFSH All Active Problems (Updated 09/29/25 @ 10:24 by ALVIN Logan) Chest pain, exertional (Acute) Chest pain (Acute) Right carotid bruit (Acute) Carotid ultrasound with 50 to 69% stenosis bilaterally. Tinnitus of left ear (Acute) HTN (hypertension) (Chronic) Nicotine dependence (Acute 08/06/13) Impaired fasting glucose (Chronic) Lung nodule (Chronic) Smoker (Acute 10/02/14) Prostate cancer (Acute 10/02/14) s/p surgery and radiation Hyperlipidemia (Acute 07/20/17) Patient with negative Doppler carotid study or significant obstructive disease requiring surgical intervention. We will continue monitoring. We will increase his atorvastatin to 60 mg daily due to his low HDL and relatively high. He refuses to stop smoking. We will see him back in 3 months and lipid panel. HH (hiatus hernia) (Acute 08/29/16) Celiac disease (Acute 09/26/16) Medical History Parotid neoplasm (02/02/18) Biopsy negative. Family history of diabetes mellitus (10/02/14) Family history of cardiac disorder (10/02/14) Surgical History Status post prostatectomy Excision, Tumor [facility] [place]18[place]17; PAROTID TUMOR OR GLAND, LATERAL LOBE Family History Mother , KIDNEY DISEASE at age 80. No problems noted. Father Diabetes Heart disease Sister Diabetes Heart disease Brother Stroke Brother Cancer Social History Smoking/Tobacco Use Status: Current every day Tobacco Type: cigarettes Tobacco: How many years used: 53 Quit status: not considering quitting Smoking risk assessment performed?: Yes Alcohol Intake: never Drug use: Never Substance use type: does not use Caregiver/Support person: Yes Household members: spouse Housing: house Communication Needs: Hard of Hearing Do you need help understanding health information?: Never Pets and animals: Yes Pets and animals: cat(s) Sexually active: No Do you think of yourself as: straight/heterosexual Current gender identity: male What is your relationship status?: How often do you talk on the phone with friends or family?: three or more times per week How often do you get together with friends or relatives?: once per week How often do you attend mandaeism or lutheran services?: decline to answer Do you belong to any clubs or organized social groups?: no Panel score (0-1 are the most socially isolated patients): 2 What type of physical activity do you participate in: walking Duration: decline to answer Frequency: daily Colleen/Jehovah'S Witness: No preference Special colleen needs: No Seatbelt use: always Drive intox or ride w/intox driver's license examiner: No Do you feel safe at home: Yes Do you feel safe in your relationship?: Yes
[2025-09-29 08:29] LABS: INR 1.0 (0.9-1.1); PTT Activated 25.2 sec (20.6-30.2); Prothrombin Time 10.1 sec (9.1-11.1)
[2025-09-29] MEDS: Aspirin 81 MG CHEW 324 MG CH (08:33)
[2025-09-29] MEDS: Normal Saline Flush 10 ML SYR IVP (08:33)
[2025-09-29] MEDS: Lactated Ringers 1,000 ML 1000 ML IV (08:34)
[2025-09-29 08:37] LABS: Lipase 29 U/L (<53)
[2025-09-29 08:38] LABS: Troponin I 8 ng/L (<54)
[2025-09-29 08:39] LABS: Magnesium 2.0 mg/dL (1.6-2.6)
[2025-09-29 08:40] LABS: ALT 19 U/L (10-49); AST 18 U/L (<34); Albumin 4.4 g/dL (3.4-5.0); Alkaline Phosphatase 106 U/L (46-116); Anion Gap 5.3 mmol/L (3-11); BUN 10 mg/dL (9-23); Bilirubin, Total 0.30 mg/dL (0.2-1.2); CO2 28.7 mmol/L (20.0-31.0); Calcium 9.1 mg/dL (8.3-10.6); Chloride 108 mmol/L (98-107); Glucose 97 mg/dL (74-106); Potassium 4.1 mmol/L (3.5-5.1); Sodium 142 mmol/L (136-145); Total Protein 7.8 g/dL (5.7-8.2)
[2025-09-29 08:42] LABS: TSH (W/Ref FT4) 0.54 uIU/mL (0.55-4.78)
[2025-09-29] MEDS: Lisinopril 20 MG TAB 40 MG PO (09:16)
[2025-09-29] MEDS: Sertraline 100 MG TAB PO (09:16)
[2025-09-29 09:48] LABS: Troponin I 7 ng/L (<54)
[2025-09-29 09:52] LABS: Glucose Negative (Negative)
[2025-09-29 10:02] LABS: C & S Indicated? No
[2025-09-29 18:49] LABS: PSA, Diagnostic 1.6 ng/mL (<=6.5)
== END 2025-09-29 10:40 | disposition home or self-care (01) ==
PROVIDERS: Emergency Provider Physician Assistant; PCP Internal Medicine
DX: R07.9 Chest pain, unspecified (principal); I10 Essential (primary) hypertension; Z72.0 Tobacco use
CPT/HCPCS: 36415; 80053; 83690; 93005; 96360; 99284; 71046; 81003; 81015; 83735; 84153; 84439; 84443; 84484; 85025; 85610; 85730; 93010